=== PATIENT | female | born 1980 | race Caucasian/White ===

== ENCOUNTER 2017-07-14 15:13 | Emergency (ER) | payer OTHER ==
--- NOTE | 2017-07-14 15:51 | EDM.PDOC ---
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 Patient indicates she is anywhere from 5-7 weeks by serology but that she has had no established care appointment. Patient indicates this was an intentional that she had her IUD removed to get . Patient indicates she has had 5 pregnancies with 4 live births and she has never felt pressure or pain in her lower pelvis likely this before. Patient denies any vaginal bleeding or discharge at this time.] Review of systems: As per history of present illness and below otherwise all systems reviewed and negative. Past medical history: As per history of present illness and as reviewed below otherwise noncontributory. Surgical history: As per history of present illness and as reviewed below otherwise noncontributory. Social history: No reported history of drug or alcohol abuse. Family history: As per history of present illness and as reviewed below otherwise noncontributory. Physical exam: HEENT: Atraumatic, normocephalic, pupils reactive, negative for conjunctival pallor or scleral icterus, mucous membranes moist, throat clear, neck supple, nontender, trachea midline. Lungs: Clear to auscultation, breath sounds equal bilaterally, chest nontender. Heart: S1S2, regular, negative for clicks, rubs, or JVD. Abdomen: Soft, nondistended, nontender. Negative for masses or hepatosplenomegaly. Negative for costovertebral tenderness. Pelvis: Stable nontender. Genitourinary: Deferred. Rectal: Deferred. Extremities: Atraumatic, negative for cords or calf pain. Neurovascular unremarkable. Neuro: Awake, alert, oriented. Cranial nerves II through XII unremarkable. Cerebellum unremarkable. Motor and sensory unremarkable throughout. Exam nonfocal. 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 Lower Abdominal Pain Score (Numeric/FACES): 8 - Related Data Allergies Allergy/AdvReac Type Severity Reaction Status Date / Time No Known Allergies Allergy Verified 07/14/17 15:28 Home Meds: Home Meds buPROPion [Wellbutrin XL] 150 mg PO DAILY 05/24/16 [History] valACYclovir HCl [Valtrex] 500 mg PO DAILY 05/24/16 [History] Past Medical History Genitourinary History: Reports: Other (See Below) Other Genitourinary History: over active bladder, genital herpes Psychiatric History: Reports: Depression Oncologic (Cancer) History: Reports: Hodgkin's Lymphoma, Other (See Below) Other Oncologic History: treated with 8 months of chemo 2001 - Infectious Disease History Infectious Disease History: Reports: Herpes - Past Surgical History Musculoskeletal Surgical History: Reports: Other (See Below) Oncologic Surgical History: Reports: Other (See Below) Social & Family History - Family History Family Medical History: Noncontributory - Tobacco Use Smoking Status *Q: Never Smoker - Caffeine Use Caffeine Use: Reports: None - Recreational Drug Use Recreational Drug Use: No ED ROS GENERAL - Review of Systems Review Of Systems: See Below (History of present illness) ED EXAM, GENERAL - Physical Exam Exam: See Below (See history of present illness) Course - Vital Signs Last Recorded V/S: Last Vital Signs Temp 37.2 C 07/14/17 15:21 Pulse 100 07/14/17 15:21 Resp 20 07/14/17 15:21 BP 126/75 07/14/17 15:21 Pulse Ox 99 07/14/17 15:21 - Orders/Labs/Meds Orders: Active Orders 24 hr Category Date Time Status OB 1st Tri Sgl 1st Gest [US] Stat Exams 07/14/17 15:32 Taken Labs: Laboratory Tests 07/14/17 07/14/17 07/14/17 Range/Units 15:20 15:39 15:39 WBC 10.82 (4.0-11.0) K/uL RBC 4.05 L (4.30-5.90) M/uL Hgb 13.2 (12.0-16.0) g/dL Hct 37.7 (36.0-46.0) % MCV 93.1 (80.0-98.0) fL MCH 32.6 H (27.0-32.0) pg MCHC 35.0 (31.0-37.0) g/dL RDW Std Deviation 43.9 (28.0-62.0) fl RDW Coeff of Gato 13 (11.0-15.0) % Plt Count 268 (150-400) K/uL MPV 9.40 (7.40-12.00) fL Neut % (Auto) 63.1 (48.0-80.0) % Lymph % (Auto) 28.2 (16.0-40.0) % [place] % (Auto) 6.7 (0.0-15.0) % Eos % (Auto) 1.8 (0.0-7.0) % Baso % (Auto) 0.2 (0.0-1.5) % Neut # (Auto) 6.8 H (1.4-5.7) K/uL Lymph # (Auto) 3.1 H (0.6-2.4) K/uL [place] # (Auto) 0.7 (0.0-0.8) K/uL Eos # (Auto) 0.2 (0.0-0.7) K/uL Baso # (Auto) 0.0 (0.0-0.1) K/uL Nucleated RBC % 0.0 /100WBC Nucleated RBCs # 0 K/uL HCG, Quant 564.0 mIU/mL Urine Color YELLOW Urine Appearance SLT CLOUDY Urine pH 7.5 (5.0-8.0) Ur Specific Boomer 1.015 (1.001-1.035) Urine Protein NEGATIVE (NEGATIVE) mg/dL Urine Glucose (UA) NEGATIVE (NEGATIVE) mg/dL Urine Ketones NEGATIVE (NEGATIVE) mg/dL Urine Occult Blood NEGATIVE (NEGATIVE) Urine Nitrite NEGATIVE (NEGATIVE) Urine Bilirubin NEGATIVE (NEGATIVE) Urine Urobilinogen 0.2 (<2.0) EU/dL Ur Leukocyte Esterase NEGATIVE (NEGATIVE) Urine RBC 0-1 (0-2/HPF) Urine WBC 0-2 (0-5/HPF) Ur Epithelial Cells FEW (NONE-FEW) Amorphous Sediment LIGHT (NEGATIVE) Urine Bacteria FEW (NEGATIVE) Urine Mucus LIGHT (NONE-MOD) Blood Type 07/14/17 Range/Units 15:39 WBC (4.0-11.0) K/uL RBC (4.30-5.90) M/uL Hgb (12.0-16.0) g/dL Hct (36.0-46.0) % MCV (80.0-98.0) fL MCH (27.0-32.0) pg MCHC (31.0-37.0) g/dL RDW Std Deviation (28.0-62.0) fl RDW Coeff of Gato (11.0-15.0) % Plt Count (150-400) K/uL MPV (7.40-12.00) fL Neut % (Auto) (48.0-80.0) % Lymph % (Auto) (16.0-40.0) % [place] % (Auto) (0.0-15.0) % Eos % (Auto) (0.0-7.0) % Baso % (Auto) (0.0-1.5) % Neut # (Auto) (1.4-5.7) K/uL Lymph # (Auto) (0.6-2.4) K/uL [place] # (Auto) (0.0-0.8) K/uL Eos # (Auto) (0.0-0.7) K/uL Baso # (Auto) (0.0-0.1) K/uL Nucleated RBC % /100WBC Nucleated RBCs # K/uL HCG, Quant mIU/mL Urine Color Urine Appearance Urine pH (5.0-8.0) Ur Specific Boomer (1.001-1.035) Urine Protein (NEGATIVE) mg/dL Urine Glucose (UA) (NEGATIVE) mg/dL Urine Ketones (NEGATIVE) mg/dL Urine Occult Blood (NEGATIVE) Urine Nitrite (NEGATIVE) Urine Bilirubin (NEGATIVE) Urine Urobilinogen (<2.0) EU/dL Ur Leukocyte Esterase (NEGATIVE) Urine RBC (0-2/HPF) Urine WBC (0-5/HPF) Ur Epithelial Cells (NONE-FEW) Amorphous Sediment (NEGATIVE) Urine Bacteria (NEGATIVE) Urine Mucus (NONE-MOD) Blood Type A POSITIVE Departure - Departure Time of Disposition: 18:11 Disposition: Home, Self-Care 01 Condition: Good Clinical Impression: Threatened - Discharge Information Referrals: Sarai Man TRAY SERVER [Primary Care Provider] - Forms: ED Department Discharge Additional Instructions: The following information is given to patients seen in the emergency department who are being discharged to home. This information is to outline your options for follow-up care. We provide all patients seen in our emergency department with a follow-up referral. The need for follow-up, as well as the timing and circumstances, are variable depending upon the specifics of your emergency department visit. If you don't have a primary care physician on staff, we will provide you with a referral. We always advise you to contact your personal physician following an emergency department visit to inform them of the circumstance of the visit and for follow-up with them and/or the need for any referrals to a consulting specialist. The emergency department will also refer you to a specialist when appropriate. This referral assures that you have the opportunity for follow-up care with a specialist. All of these measure are taken in an effort to provide you with optimal care, which includes your follow-up. Under all circumstances we always encourage you to contact your private physician who remains a resource for coordinating your care. When calling for follow-up care, please make the office aware that this follow-up is from your recent emergency room visit. If for any reason you are refused follow-up, please contact the [facility] Emergency Department at and asked to speak to the emergency department charge nurse. Follow-up with OB in 48 hours for serial hCG Return to ED as needed as discussed - My Orders Last 24 Hours: My Active Orders 07/14/17 15:32 OB 1st Tri Sgl 1st Gest [US] Stat - Assessment/Plan Last 24 Hours: My Active Orders 07/14/17 15:32 OB 1st Tri Sgl 1st Gest [US] Stat
[2017-07-14 19:14] VITALS: BP 119/79
--- NOTE | 2017-07-15 14:05 | US ---
EXAM DATE: 07/14/17 PATIENT'S AGE: 36 Patient: TREY NDIAYE Facility: [place] Site . Site : [id number] Study: US OB Pelvis [id number]/14/2017 5:10:16 PM Ordering Physician: Doctor Field Final Report: INDICATION: with pelvic pain. HCG level 564. TECHNIQUE: Ultrasound OB pelvis. Real-time russell-scale imaging of the pelvis was performed. COMPARISON: None. FINDINGS: No definite intrauterine gestational sac. Moderate amount of fluid within the endometrial canal. Possible yolk sac within the endometrial fluid, measuring 5 millimeters. Hypoechoic focus in the left ovary with peripheral color Doppler flow, findings most suggestive of left ovarian corpus luteum cyst measuring 1.9 centimeters. Right ovary normal. No significant free pelvic fluid. IMPRESSION: 1. POSSIBLE FAILED 1ST TRIMESTER OR EARLY GESTATION WITHIN THE ENDOMETRIAL CANAL. NO DEFINITE GESTATIONAL SAC OR POLE IDENTIFIED. CONSIDER FOLLOWUP WITH REPEAT HCG LEVELS AND REPEAT PELVIC ULTRASOUND IN APPROXIMATELY 1 WEEK. 2. LIKELY LEFT OVARIAN CORPUS LUTEUM CYST. RIGHT OVARY NORMAL. 3. NO SIGNIFICANT FREE PELVIC FLUID. Report called to THAIS Araiza on 07/14/2017 at 6:10pm [facility]. Dictated by Carlos Alberto Ellsworth MD @ 07/14/2017 6:12:03 PM Dictated by: Carlos Alberto Ellsworth MD @ 07/14/2017 18:12:10 (Electronic Signature) Report Signed by Proxy. XOCHILT
== END 2017-07-14 18:26 | disposition home or self-care (01) ==
LOC: MW.ED 15:13
DX: O20.0 Threatened abortion (principal); Z79.899 Other long term (current) drug therapy; Z3A.01 Less than 8 weeks gestation of pregnancy
CPT/HCPCS: 36415; 76801; 76801-26; 81001; 84702; 85025; 86900; 86901; 99283; 99284-25

== ENCOUNTER 2017-07-26 08:53 | Day surgery (SDC) | payer OTHER ==
[~2017-07-26 08:53] MED LIST: Lactated Ringers 1,000 ML IV SCH; Sodium Chloride 0.9% 10 ML Syringe FLUSH PRN; Sodium Chloride 0.9% 2.5 ML Syringe FLUSH PRN
[2017-07-26 09:12] LABS: CHLORIDE,CL 105 mmol/L (98-110); SODIUM,NA 137 mmol/L (136-146)
--- NOTE | 2017-07-26 10:36 | PCM.PREANE ---
Preanesthetic Assessment - Procedure Proposed Procedure: Laparoscopy and D & E - Anesthesia/Transfusion/Family Hx Anesthesia History: Prior Anesthesia Without Reaction Family History of Anesthesia Reaction: No Transfusion History: Prior Transfusion Without Reaction Intubation History: Unknown - Review of Systems General: No Symptoms Pulmonary: No Symptoms Cardiovascular: No Symptoms Gastrointestinal: No Symptoms Neurological: No Symptoms Other: Reports: Depression (on wellbutrin) - Physical Assessment NPO Status Date: 07/25/17 NPO Status Time: 21:00 O2 Sat by Pulse Oximetry: 97 Respiratory Rate: 16 Vital Signs: Last Vital Signs Temp 99.0 F 07/26/17 09:40 Pulse 74 07/26/17 09:40 Resp 16 07/26/17 09:40 BP 104/55 L 07/26/17 09:40 Pulse Ox 97 07/26/17 09:40 Height: 5 ft 4 in Weight: 176 lb ASA Class: 2 Mental Status: Alert & Oriented x3 Airway Class: Mallampati = 2 Dentition: Reports: Normal Dentition Thyro-Mental Finger Breadths: 3 Mouth Opening Finger Breadths: 3 ROM/Head Extension: Full Lungs: Clear to Auscultation, Normal Respiratory Effort Cardiovascular: Regular Rate, Regular Rhythm, No Murmurs - Lab Values: Laboratory Last Values WBC 8.97 K/uL (4.0-11.0) 07/26/17 08:42 RBC 3.69 M/uL (4.30-5.90) L 07/26/17 08:42 Hgb 12.0 g/dL (12.0-16.0) 07/26/17 08:42 Hct 34.2 % (36.0-46.0) L 07/26/17 08:42 MCV 92.7 fL (80.0-98.0) 07/26/17 08:42 MCH 32.5 pg (27.0-32.0) H 07/26/17 08:42 MCHC 35.1 g/dL (31.0-37.0) 07/26/17 08:42 RDW Std Deviation 43.5 fl (28.0-62.0) 07/26/17 08:42 RDW Coeff of Gato 13 % (11.0-15.0) 07/26/17 08:42 Plt Count 224 K/uL (150-400) 07/26/17 08:42 MPV 8.80 fL (7.40-12.00) 07/26/17 08:42 Nucleated RBC % 0.0 /100WBC 07/26/17 08:42 Nucleated RBCs # 0 K/uL 07/26/17 08:42 Sodium 137 mmol/L (136-146) 07/26/17 08:42 Potassium 3.8 mmol/L (3.5-5.1) 07/26/17 08:42 Chloride 105 mmol/L (98-110) 07/26/17 08:42 Carbon Dioxide 27 mmol/L (21-31) 07/26/17 08:42 BUN 11 mg/dL (6.0-23.0) 07/26/17 08:42 Creatinine 0.7 mg/dL (0.6-1.5) 07/26/17 08:42 Est Cr Clr Drug Dosing 95.94 mL/min 07/26/17 08:42 Estimated GFR (MDRD) > 60.0 ml/min 07/26/17 08:42 Glucose 86 mg/dL (60-110) 07/26/17 08:42 Calcium 8.9 mg/dL (8.8-10.8) 07/26/17 08:42 Blood Type A POSITIVE 07/26/17 08:42 Antibody Screen NEGATIVE 07/26/17 08:42 - Allergies Allergies/Adverse Reactions: Allergies Allergy/AdvReac Type Severity Reaction Status Date / Time No Known Allergies Allergy Verified 07/25/17 15:47 - Blood Blood Available: Yes Product(s) Available: PRBC (T and S) - Anesthesia Plan Pre-Op Medication Ordered: None - Acknowledgements Anesthesia Type Planned: General Anesthesia (OETT) Pt an Appropriate Candidate for the Planned Anesthesia: Yes Alternatives and Risks of Anesthesia Discussed w Pt/Guardian: Yes Pt/Guardian Understands and Agrees with Anesthesia Plan: Yes PreAnesthesia Questionnaire Other HEENT History: wears glasses/contacts Genitourinary History: Reports: Other (See Below) Other Genitourinary History: over active bladder, genital herpes Psychiatric History: Reports: Depression Hematologic History: Reports: Blood Transfusion(s) Oncologic (Cancer) History: Reports: Lymphoma Other Oncologic History: treated with chemo Dermatologic History: Reports: Other (See Below) Other Dermatologic History: genital herpes - Infectious Disease History Infectious Disease History: Reports: Herpes - Past Surgical History HEENT Surgical History: Reports: Other (See Below) Other HEENT Surgeries/Procedures: neck biopsy Female Surgical History: Reports: None Musculoskeletal Surgical History: Reports: Carpal Tunnel Other Musculoskeletal Surgeries/Procedures:: bilateral Oncologic Surgical History: Reports: Other (See Below) Other Oncologic Surgeries/Procedures: had port placement and removal - SUBSTANCE USE Smoking Status *Q: Never Smoker Recreational Drug Use History: No - HOME MEDS Home Medications: Home Meds buPROPion [Wellbutrin XL] 150 mg PO DAILY 05/24/16 [History] valACYclovir HCl [Valtrex] 500 mg PO DAILY 05/24/16 [History] - CURRENT (IN HOUSE) MEDS Current Meds: Current Medications Lactated Ringer's (Ringers, Lactated) 1,000 mls @ 125 mls/hr IV ASDIRECTED JOSE RAUL Last Admin: 07/26/17 09:35 Dose: 125 mls/hr Sodium Chloride (Saline Flush) 10 ml FLUSH ASDIRECTED PRN PRN Reason: Keep Vein Open Sodium Chloride (Saline Flush) 2.5 ml FLUSH ASDIRECTED PRN PRN Reason: Keep Vein Open
[2017-07-26] MEDS ORDERED: Fluorescein 5 ML Vial ONE (10:54)
[2017-07-26] MEDS ORDERED: Octyl 2-Cyanoacrylate 1 Tube ONE (10:54)
[2017-07-26] MEDS ORDERED: fentaNYL 100 MCG/2 ML SDV ONE (11:08)
[2017-07-26] MEDS ORDERED: Rocuronium 10 MG/ML 10 ML Syringe ONE (11:08)
[2017-07-26] MEDS ORDERED: Ondansetron 4 MG/2 ML SDV ONE (11:08)
[2017-07-26] MEDS ORDERED: Succinylcholine/Normal Saline 200 MG/10 ML Syringe ONE (11:08)
[2017-07-26] MEDS ORDERED: Dexamethasone 4 MG/ML 5 ML MDV ONE (11:08)
[2017-07-26] MEDS ORDERED: Midazolam 1 MG/ML 2 ML SDV ONE (11:08)
[2017-07-26] MEDS ORDERED: Propofol 200 MG/20 ML SDV ONE (11:08)
[2017-07-26] MEDS ORDERED: diphenhydrAMINE 50 MG/ML SDV ONE (11:44)
[2017-07-26] MEDS ORDERED: HYDROmorphone 2 MG/ML Syringe ONE (11:45)
[2017-07-26] MEDS ORDERED: Neostigmine Methylsulfate 1 MG/ML 5 ML Syringe ONE (12:06)
[2017-07-26] MEDS ORDERED: Ketorolac 30 MG/ML SDV ONE (12:10)
[2017-07-26] MEDS ORDERED: Acetaminophen/oxyCODONE 325-5 MG Tab PO PRN ×2 (12:19)
[2017-07-26] MEDS ORDERED: Morphine 4 MG/ML Syringe IVPUSH PRN (12:19)
[2017-07-26] MEDS ORDERED: Ondansetron 4 MG/2 ML SDV IVPUSH PRN (12:19)
[2017-07-26] MEDS ORDERED: Promethazine 25 MG/ML SDV IM PRN (12:19)
[2017-07-26] MEDS ORDERED: Ketorolac 30 MG/ML SDV IVPUSH PRN (12:19)
[2017-07-26] MEDS ORDERED: Ketorolac 30 MG/ML SDV IVPUSH ONE (12:19)
[2017-07-26] MEDS ORDERED: Morphine 2 MG/ML Syringe IVPUSH PRN (12:19)
--- NOTE | 2017-07-26 12:23 | PCM.OPNOTE ---
- General Post-Op/Procedure Note Date of Surgery/Procedure: 07/26/17 Operative Procedure(s): D&E Dignostic Laparascopy Pre Op Diagnosis: Ectopic Post-Op Diagnosis: Same Anesthesia Technique: General ET Tube Primary Surgeon: Siva Wyman EBL in mLs: 35 Complications: None Condition: Good
--- NOTE | 2017-07-26 12:24 | PCM.DCSUM1 ---
Discharge Summary - Discharge Data Discharge Date: 07/26/17 Discharge Disposition: Home, Self-Care 01 Condition: Good - Patient Summary/Data Operative Procedure(s) Performed: D&E Dignostic Laparascopy - Patient Instructions Diet: Usual Diet as Tolerated Activity: As Tolerated Driving: Do Not Drive Showering/Bathing: January Shower Wound/Incision Care: Keep Operative Site/Wound Site Clean and Dry Notify Provider of: Fever, Increased Pain, Nausea and/or Vomiting - Discharge Plan Home Medications: Home Meds buPROPion [Wellbutrin XL] 150 mg PO DAILY 05/24/16 [History] valACYclovir HCl [Valtrex] 500 mg PO DAILY 05/24/16 [History] - General Info Date of Service: 07/26/17 Functional Status: Reports: Pain Controlled - Review of Systems General: Reports: No Symptoms HEENT: Reports: No Symptoms Pulmonary: Reports: No Symptoms Cardiovascular: Reports: No Symptoms Gastrointestinal: Reports: No Symptoms Genitourinary: Reports: No Symptoms Musculoskeletal: Reports: No Symptoms Skin: Reports: No Symptoms Neurological: Reports: No Symptoms Psychiatric: Reports: No Symptoms - Patient Data Vitals - Most Recent: Last Vital Signs Temp 37.2 C 07/26/17 09:40 Pulse 74 07/26/17 09:40 Resp 16 07/26/17 10:36 BP 104/55 L 07/26/17 09:40 Pulse Ox 97 07/26/17 10:36 Weight - Most Recent: 79.832 kg Lab Results - Last 24 hrs: Laboratory Results - last 24 hr 07/26/17 07/26/17 07/26/17 Range/Units 08:42 08:42 08:42 WBC 8.97 (4.0-11.0) K/uL RBC 3.69 L (4.30-5.90) M/uL Hgb 12.0 (12.0-16.0) g/dL Hct 34.2 L (36.0-46.0) % MCV 92.7 (80.0-98.0) fL MCH 32.5 H (27.0-32.0) pg MCHC 35.1 (31.0-37.0) g/dL RDW Std Deviation 43.5 (28.0-62.0) fl RDW Coeff of Gato 13 (11.0-15.0) % Plt Count 224 (150-400) K/uL MPV 8.80 (7.40-12.00) fL Nucleated RBC % 0.0 /100WBC Nucleated RBCs # 0 K/uL Sodium 137 (136-146) mmol/L Potassium 3.8 (3.5-5.1) mmol/L Chloride 105 (98-110) mmol/L Carbon Dioxide 27 (21-31) mmol/L BUN 11 (6.0-23.0) mg/dL Creatinine 0.7 (0.6-1.5) mg/dL Est Cr Clr Drug Dosing 95.94 mL/min Estimated GFR (MDRD) > 60.0 ml/min Glucose 86 (60-110) mg/dL Calcium 8.9 (8.8-10.8) mg/dL Blood Type A POSITIVE Antibody Screen NEGATIVE Med Orders - Current: Current Medications Lactated Ringer's (Ringers, Lactated) 1,000 mls @ 125 mls/hr IV ASDIRECTED JOSE RAUL Last Admin: 07/26/17 09:35 Dose: 125 mls/hr Ketorolac Tromethamine (Toradol) 30 mg IVPUSH ONETIME ONE Stop: 07/26/17 12:20 Ketorolac Tromethamine (Toradol) 30 mg IVPUSH Q6H PRN PRN Reason: Pain (severe 7-10) Stop: 07/31/17 12:19 Morphine Sulfate (Morphine) 2 mg IVPUSH Q2H PRN PRN Reason: Pain (severe 7-10) Morphine Sulfate (Morphine) 4 mg IVPUSH Q2H PRN PRN Reason: Pain (severe 7-10) Ondansetron HCl (Zofran) 4 mg IVPUSH Q6H PRN PRN Reason: Nausea/Vomiting Oxycodone/Acetaminophen (Percocet 325-5 Mg) 1 tab PO Q4H PRN PRN Reason: Pain (moderate 4-6) Oxycodone/Acetaminophen (Percocet 325-5 Mg) 2 tab PO Q4H PRN PRN Reason: Pain (moderate 4-6) Promethazine HCl (Phenergan) 25 mg IM Q6H PRN PRN Reason: Nausea/Vomiting Sodium Chloride (Saline Flush) 10 ml FLUSH ASDIRECTED PRN PRN Reason: Keep Vein Open Sodium Chloride (Saline Flush) 2.5 ml FLUSH ASDIRECTED PRN PRN Reason: Keep Vein Open Discontinued Medications Dexamethasone (Dexamethasone) Confirm Administered Dose 20 mg .ROUTE .ST-MED ONE Stop: 07/26/17 11:09 Diphenhydramine HCl (Benadryl) Confirm Administered Dose 50 mg .ROUTE .STK-MED ONE Stop: 07/26/17 11:45 Fentanyl (Sublimaze) Confirm Administered Dose 200 mcg .ROUTE .ST-MED ONE Stop: 07/26/17 11:09 Fluorescein Sodium (Ak-Fluor) Confirm Administered Dose 5 ml .ROUTE .ST-MED ONE Stop: 07/26/17 10:55 Glycopyrrolate () Confirm Administered Dose 1 mg .ROUTE .ST-MED ONE Stop: 07/26/17 12:07 Hydromorphone HCl (Dilaudid) Confirm Administered Dose 2 mg .ROUTE .ST-MED ONE Stop: 07/26/17 11:46 Ketorolac Tromethamine (Toradol) Confirm Administered Dose 30 mg .ROUTE .[email or web address] MED ONE Stop: 07/26/17 12:11 Midazolam HCl (Versed 1 Mg/Ml) Confirm Administered Dose 2 mg .ROUTE .[facility] [[email or web address]MED ONE Stop: 07/26/17 11:09 Neostigmine Methylsulfate (Neostigmine) Confirm Administered Dose 5 mg .ROUTE .ST-MED ONE Stop: 07/26/17 12:07 Octyl Cyanoacrylate (Dermabond Advance) Confirm Administered Dose 1 applic .ROUTE .[facility] [[email or web address]MED ONE Stop: 07/26/17 10:55 Ondansetron HCl (Zofran) Confirm Administered Dose 4 mg .ROUTE .ST-MED ONE Stop: 07/26/17 11:09 Propofol (Diprivan 20 Ml) Confirm Administered Dose 200 mg .ROUTE .ST-MED ONE Stop: 07/26/17 11:09 Rocuronium [place] (Zemuron) Confirm Administered Dose 100 mg .ROUTE .ST-MED ONE Stop: 07/26/17 11:09 Succinylcholine Chloride (Succinylcholine In Ns Pf) Confirm Administered Dose 200 mg .ROUTE .ST-MED ONE Stop: 07/26/17 11:09 - Exam General: Reports: Alert, Oriented HEENT: Reports: Pupils Equal, Pupils Reactive, EOMI, Mucous Membr. Moist/[place] Neck: Reports: Supple Lungs: Reports: Clear to Auscultation, Normal Respiratory Effort Cardiovascular: Reports: Regular Rate, Regular Rhythm GI/Abdominal Exam: Normal Bowel Sounds, Soft, Non-Tender, No Organomegaly, No Distention, No Abnormal Bruit, No Mass, Pelvis Stable (Female) Exam: Normal External Exam, Normal Speculum Exam, Normal Bimanual Exam Rectal (Female) Exam: Normal Exam, Normal Rectal Tone Back Exam: Reports: Normal Inspection, Full Range of Motion Extremities: Normal Inspection, Normal Range of Motion, Non-Tender, No Pedal Edema, Normal Capillary Refill Skin: Reports: Warm, Dry, Intact Wound/Incisions: Reports: Healing Well Neurological: Reports: No New Focal Deficit Psy/Mental Status: Reports: Alert, Normal Affect, Normal Mood *Q Meaningful Use (DIS) - VTE *Q VTE Criteria *Q: - Stroke *Q Stroke Criteria *Q: - AMI *Q AMI Criteria *Q:
--- NOTE | 2017-07-26 12:56 | PCM.POSTAN ---
POST ANESTHESIA ASSESSMENT - MENTAL STATUS Mental Status: Alert, Oriented - RESPIRATORY Respiratory Status: Respiratory Rate WNL, Airway Patent, O2 Saturation Stable - CARDIOVASCULAR CV Status: Pulse Rate WNL, Blood Pressure Stable - GASTROINTESTINAL GI Status: No Symptoms - PAIN Pain Score: 4 - POST OP HYDRATION Hydration Status: Adequate & Stable
--- NOTE | 2017-07-26 13:41 | PCM48HPAN ---
Post Anesthesia Note - EVALUATION WITHIN 48HRS OF ANESTHETIC Vital Signs in Normal Range: Yes Patient Participated in Evaluation: Yes Respiratory Function Stable: Yes Airway Patent: Yes Cardiovascular Function Stable: Yes Hydration Status Stable: Yes Pain Control Satisfactory: Yes Nausea and Vomiting Control Satisfactory: Yes Mental Status Recovered: Yes
[2017-07-26 15:30] VITALS: BP 116/71
--- NOTE | 2017-07-26 18:52 | OR ---
SURGEON: Siva Wyman MD DATE OF PROCEDURE: PREOPERATIVE DIAGNOSES: 1. Tubal . 2. Abnormal rise of beta-HCG radioimmunoassay. POSTOPERATIVE DIAGNOSES: 1. Tubal . 2. Abnormal rise of beta-HCG radioimmunoassay. OPERATION PERFORMED: Dilatation and evacuation and multiple-puncture diagnostic laparoscopy. TOUR CONDUCTOR: OR tech. ANESTHESIA: General endotracheal intubation, Sheba Gibbons and Dr. Sanches. ESTIMATED BLOOD LOSS: Less than 50 mL. COMPLICATIONS: None. FINDINGS: Some decidual tissue and possible products of conception through the D and E. In the diagnostic laparoscopy, both tubes are essentially normal. There is no evidence of tubal . INDICATIONS FOR SURGERY: This patient has an abnormal rise of beta-HCG PAOLA. In spite of 2 doses of methotrexate, the beta-hCG PAOLA continued to rise abnormally, so the possibility of tubal is entertained versus a chemical , and a decision was made to do D and E and diagnostic laparoscopy. PROCEDURE IN DETAIL: The patient was brought to the OR, properly identified, and after adequate level of general anesthesia, the patient was placed in the lithotomy position, prepped and draped in a sterile fashion as usual. A weighted speculum was placed in the vagina, and a single-tooth tenaculum applied to the cervix. The cervix was sequentially dilated to accommodate a #7 cannula. The cannula was placed in the endometrial cavity, and the cavity was uniformly evacuated. There was a small blood clot and a small amount of tissue. It was not sufficient to make the diagnosis that the patient did have incomplete . A Hulka manipulator was placed in the uterus for manipulation, and then the operation shifted abdominally. Stab wound done beneath the umbilicus. The Veress needle was placed in the peritoneal cavity, and the cavity was insufflated with 6 L of carbon dioxide. Utilizing the Visiport technique, the peritoneal cavity was entered from the umbilical incision with 5 mm trocar and then placing the patient in steep Trendelenburg, another 5 mm trocar was placed in the left iliac fossa. On inspection of the pelvic organ, there was no hematoperitoneum. The uterus looked completely normal. Both tubes looked beautifully normal. There was no evidence scarring or adhesion or endometriosis. There was no evidence of tubal in both tubes. After doing peritoneal lavage and making sure everything was okay, the procedure was ended, the air was evacuated from the peritoneal cavity, and the multiple laparoscopic incisions were closed in layers. Instrument and sponge counts were obtained from the abdomen and the vagina. The patient tolerated the procedure well and went to the recovery room in stable and general condition. RYAN BOSTON /[id number]
== END 2017-07-26 14:40 | disposition home or self-care (01) ==
LOC: MW.SDS 08:53
PROVIDERS: ATTEND Obstetrics & Gynecology
DX: O03.4 Incomplete spontaneous abortion without complication (principal); F41.9 Anxiety disorder, unspecified; F32.9 Major depressive disorder, single episode, unspecified; A60.00 Herpesviral infection of urogenital system, unspecified; J01.90 Acute sinusitis, unspecified; J40 Bronchitis, not specified as acute or chronic; J02.9 Acute pharyngitis, unspecified; N32.81 Overactive bladder; Z80.3 Family history of malignant neoplasm of breast; Z98.890 Other specified postprocedural states; Z79.51 Long term (current) use of inhaled steroids; Z79.899 Other long term (current) drug therapy; Z91.030 Bee allergy status; Z85.71 Personal history of Hodgkin lymphoma
CPT/HCPCS: 36415; 49320; 59841; 80048; 85027; 86850; 86900; 86901; A9270; J1100; J1170; J1200; J1885; J2250; J2405; J3010; J7120; 00840; 88305; J2704

== ENCOUNTER 2017-10-17 10:24 | Day surgery (SDC) | payer OTHER ==
[2017-10-17] MEDS ORDERED: Lactated Ringers 1,000 ML IV SCH (11:00)
[2017-10-17] MEDS ORDERED: Ondansetron 4 MG/2 ML SDV ONE ×2 (11:16→11:17)
[2017-10-17] MEDS ORDERED: Atropine 1 MG/ML SDV ONE ×2 (11:16→11:17)
[2017-10-17] MEDS ORDERED: Dexamethasone 4 MG/ML 5 ML MDV ONE ×2 (11:16→11:17)
[2017-10-17] MEDS ORDERED: Lidocaine 2% 5 ML SDV ONE ×2 (11:16→11:17)
[2017-10-17] MEDS ORDERED: Ketorolac 30 MG/ML SDV ONE ×2 (11:16→11:17)
[2017-10-17] MEDS ORDERED: Midazolam 1 MG/ML 2 ML SDV ONE (11:17)
[2017-10-17] MEDS ORDERED: Propofol 200 MG/20 ML SDV ONE (11:17)
[2017-10-17] MEDS ORDERED: fentaNYL 100 MCG/2 ML SDV ONE (11:17)
--- NOTE | 2017-10-17 11:32 | PCM.PREANE ---
Preanesthetic Assessment - Anesthesia/Transfusion/Family Hx Anesthesia History: Prior Anesthesia Without Reaction Family History of Anesthesia Reaction: No Transfusion History: Prior Transfusion Without Reaction Intubation History: Unknown - Review of Systems General: No Symptoms Pulmonary: No Symptoms Cardiovascular: No Symptoms Gastrointestinal: No Symptoms Neurological: No Symptoms Other: Reports: None - Physical Assessment NPO Status Date: 10/16/17 NPO Status Time: 21:00 O2 Sat by Pulse Oximetry: 98 Respiratory Rate: 16 Vital Signs: Last Vital Signs Temp 37.1 C 10/17/17 10:30 Pulse 82 10/17/17 10:30 Resp 16 10/17/17 10:30 BP 112/65 10/17/17 10:30 Pulse Ox 98 10/17/17 10:30 Height: 1.63 m Weight: 79.379 kg ASA Class: 2 Mental Status: Alert & Oriented x3 Airway Class: Mallampati = 1 Dentition: Reports: Normal Dentition ROM/Head Extension: Full Lungs: Clear to Auscultation, Normal Respiratory Effort Cardiovascular: Regular Rate, Regular Rhythm - Allergies Allergies/Adverse Reactions: Allergies Allergy/AdvReac Type Severity Reaction Status Date / Time No Known Allergies Allergy Verified 10/14/17 16:51 - Anesthesia Plan Pre-Op Medication Ordered: None - Acknowledgements Anesthesia Type Planned: General Anesthesia Pt an Appropriate Candidate for the Planned Anesthesia: Yes Alternatives and Risks of Anesthesia Discussed w Pt/Guardian: Yes Pt/Guardian Understands and Agrees with Anesthesia Plan: Yes PreAnesthesia Questionnaire Other HEENT History: wears glasses, contacts Genitourinary History: Reports: Other (See Below) Other Genitourinary History: hx of vaginal herpes 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 , , 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 Psychiatric History: Reports: Depression Hematologic History: Reports: Blood Transfusion(s) Immunologic History: Reports: Other (See Below) Other Immunologic History: hx of chemotherapy Oncologic (Cancer) History: Reports: Lymphoma Other Oncologic History: hx of Hodgkins Lymphoma, has been in remission for 14 years Dermatologic History: Reports: Other (See Below) Other Dermatologic History: genital herpes - Infectious Disease History Infectious Disease History: Reports: Herpes - Past Surgical History Cardiovascular Surgical History: Reports: Other (See Below) Other Cardiovascular Surgeries/Procedures: plasement and removal of port-a-cath Female Surgical History: Reports: Other (See Below) Other Female Surgeries/Procedures: laparoscopy for ectopic Musculoskeletal Surgical History: Reports: Other (See Below) Other Musculoskeletal Surgeries/Procedures:: bilateral carpal tunnel release Oncologic Surgical History: Reports: Other (See Below) Other Oncologic Surgeries/Procedures: hx of lymph node bx - SUBSTANCE USE Smoking Status *Q: Never Smoker Recreational Drug Use History: No - HOME MEDS Home Medications: Home Meds buPROPion [Wellbutrin XL] 150 mg PO DAILY 05/24/16 [History] valACYclovir HCl [Valtrex] 1,000 mg PO DAILY 05/24/16 [History] Diclofenac Sodium [Voltaren] 1 dose TOP BID PRN 10/14/17 [History] - CURRENT (IN HOUSE) MEDS Current Meds: Current Medications Lactated Ringer's (Ringers, Lactated) 1,000 mls @ 125 mls/hr IV ASDIRECTED [facility] Last Admin: 10/17/17 10:54 Dose: 125 mls/hr Discontinued Medications Atropine Sulfate (Atropine 1 Mg/Ml) Confirm Administered Dose 1 mg .ROUTE .STK- MED ONE Stop: 10/17/17 11:17 Atropine Sulfate (Atropine 1 Mg/Ml) Confirm Administered Dose 1 mg .ROUTE .STK- MED ONE Stop: 10/17/17 11:18 Dexamethasone (Dexamethasone) Confirm Administered Dose 20 mg .ROUTE .STK-MED ONE Stop: 10/17/17 11:17 Dexamethasone (Dexamethasone) Confirm Administered Dose 20 mg .ROUTE .STK-MED ONE Stop: 10/17/17 11:18 Fentanyl (Sublimaze) Confirm Administered Dose 100 mcg .ROUTE .STK-MED ONE Stop: 10/17/17 11:18 Ketorolac Tromethamine (Toradol) Confirm Administered Dose 30 mg .ROUTE .STK- MED ONE Stop: 10/17/17 11:17 Ketorolac Tromethamine (Toradol) Confirm Administered Dose 30 mg .ROUTE .STK- MED ONE Stop: 10/17/17 11:18 Lidocaine (Xylocaine-Mpf 2%) Confirm Administered Dose 5 ml .ROUTE .STK-MED ONE Stop: 10/17/17 11:17 Lidocaine (Xylocaine-Mpf 2%) Confirm Administered Dose 5 ml .ROUTE .STK-MED ONE Stop: 10/17/17 11:18 Midazolam HCl (Versed 1 Mg/Ml) Confirm Administered Dose 2 mg .ROUTE .STK-MED ONE Stop: 10/17/17 11:18 Ondansetron HCl (Zofran) Confirm Administered Dose 4 mg .ROUTE .STK-MED ONE Stop: 10/17/17 11:17 Ondansetron HCl (Zofran) Confirm Administered Dose 4 mg .ROUTE .STK-MED ONE Stop: 10/17/17 11:18 Propofol (Diprivan 20 Ml) Confirm Administered Dose 400 mg .ROUTE .STK-MED ONE Stop: 10/17/17 11:18
[2017-10-17] MEDS ORDERED: Carboprost Tromethamine 250 MCG/1 ML Amp ONE (11:33)
[2017-10-17] MEDS ORDERED: Methylergonovine 0.2 MG/1 ML Amp ONE (11:33)
[2017-10-17] MEDS ORDERED: Morphine 4 MG/ML Syringe IVPUSH PRN (12:20)
[2017-10-17] MEDS ORDERED: Promethazine 25 MG/ML SDV IM PRN (12:20)
[2017-10-17] MEDS ORDERED: Ketorolac 30 MG/ML SDV IVPUSH PRN (12:20)
[2017-10-17] MEDS ORDERED: Acetaminophen/oxyCODONE 325-5 MG Tab PO PRN ×2 (12:20)
[2017-10-17] MEDS ORDERED: Ketorolac 30 MG/ML SDV IVPUSH ONE (12:20)
[2017-10-17] MEDS ORDERED: Ondansetron 4 MG/2 ML SDV IVPUSH PRN (12:20)
[2017-10-17] MEDS ORDERED: Morphine 2 MG/ML Syringe IVPUSH PRN (12:20)
--- NOTE | 2017-10-17 12:25 | PCM.DCSUM1 ---
Discharge Summary - Discharge Data Discharge Date: 10/17/17 Discharge Disposition: Home, Self-Care 01 Condition: Good - Patient Instructions Diet: Usual Diet as Tolerated Activity: As Tolerated Showering/Bathing: May Shower Notify Provider of: Fever, Increased Pain, Nausea and/or Vomiting - Discharge Plan Home Medications: Home Meds buPROPion [Wellbutrin XL] 150 mg PO DAILY 05/24/16 [History] valACYclovir HCl [Valtrex] 1,000 mg PO DAILY 05/24/16 [History] Diclofenac Sodium [Voltaren] 1 dose TOP BID PRN 10/14/17 [History] - General Info Date of Service: 10/17/17 Functional Status: Reports: Pain Controlled - Review of Systems General: Reports: No Symptoms HEENT: Reports: No Symptoms Pulmonary: Reports: No Symptoms Cardiovascular: Reports: No Symptoms Gastrointestinal: Reports: No Symptoms Genitourinary: Reports: No Symptoms Musculoskeletal: Reports: No Symptoms Skin: Reports: No Symptoms Neurological: Reports: No Symptoms Psychiatric: Reports: No Symptoms - Patient Data Vitals - Most Recent: Last Vital Signs Temp 37.1 C 10/17/17 10:30 Pulse 82 10/17/17 10:30 Resp 16 10/17/17 11:32 BP 112/65 10/17/17 10:30 Pulse Ox 98 10/17/17 11:32 Weight - Most Recent: 79.379 kg Med Orders - Current: Current Medications Lactated Ringer's (Ringers, Lactated) 1,000 mls @ 125 mls/hr IV ASDIRECTED JOSE RAUL Last Admin: 10/17/17 10:54 Dose: 125 mls/hr Ketorolac Tromethamine (Toradol) 30 mg IVPUSH ONETIME ONE Stop: 10/17/17 12:21 Ketorolac Tromethamine (Toradol) 30 mg IVPUSH Q6H PRN PRN Reason: Pain (severe 7-10) Stop: 10/22/17 12:21 Morphine Sulfate (Morphine) 2 mg IVPUSH Q2H PRN PRN Reason: Pain (severe 7-10) Morphine Sulfate (Morphine) 4 mg IVPUSH Q2H PRN PRN Reason: Pain (severe 7-10) Ondansetron HCl (Zofran) 4 mg IVPUSH Q6H PRN PRN Reason: Nausea/Vomiting Oxycodone/Acetaminophen (Percocet 325-5 Mg) 1 tab PO Q4H PRN PRN Reason: Pain (moderate 4-6) Oxycodone/Acetaminophen (Percocet 325-5 Mg) 2 tab PO Q4H PRN PRN Reason: Pain (moderate 4-6) Promethazine HCl (Phenergan) 25 mg IM Q6H PRN PRN Reason: Nausea/Vomiting Discontinued Medications Atropine Sulfate (Atropine 1 Mg/Ml) Confirm Administered Dose 1 mg .ROUTE .STK- MED ONE Stop: 10/17/17 11:17 Atropine Sulfate (Atropine 1 Mg/Ml) Confirm Administered Dose 1 mg .ROUTE .STK- MED ONE Stop: 10/17/17 11:18 Carboprost Tromethamine (Hemabate Ds) Confirm Administered Dose 250 mcg .ROUTE .STK-MED ONE Stop: 10/17/17 11:34 Dexamethasone (Dexamethasone) Confirm Administered Dose 20 mg .ROUTE .STK-MED ONE Stop: 10/17/17 11:17 Dexamethasone (Dexamethasone) Confirm Administered Dose 20 mg .ROUTE .STK-MED ONE Stop: 10/17/17 11:18 Fentanyl (Sublimaze) Confirm Administered Dose 100 mcg .ROUTE .STK-MED ONE Stop: 10/17/17 11:18 Ketorolac Tromethamine (Toradol) Confirm Administered Dose 30 mg .ROUTE .STK- MED ONE Stop: 10/17/17 11:17 Ketorolac Tromethamine (Toradol) Confirm Administered Dose 30 mg .ROUTE .STK- MED ONE Stop: 10/17/17 11:18 Lidocaine (Xylocaine-Mpf 2%) Confirm Administered Dose 5 ml .ROUTE .STK-MED ONE Stop: 10/17/17 11:17 Lidocaine (Xylocaine-Mpf 2%) Confirm Administered Dose 5 ml .ROUTE .STK-MED ONE Stop: 10/17/17 11:18 Methylergonovine Maleate (Methergine) Confirm Administered Dose 0.2 mg .ROUTE .STK-MED ONE Stop: 10/17/17 11:34 Midazolam HCl (Versed 1 Mg/Ml) Confirm Administered Dose 2 mg .ROUTE .STK-MED ONE Stop: 10/17/17 11:18 Ondansetron HCl (Zofran) Confirm Administered Dose 4 mg .ROUTE .STK-MED ONE Stop: 10/17/17 11:17 Ondansetron HCl (Zofran) Confirm Administered Dose 4 mg .ROUTE .STK-MED ONE Stop: 10/17/17 11:18 Propofol (Diprivan 20 Ml) Confirm Administered Dose 400 mg .ROUTE .STK-MED ONE Stop: 10/17/17 11:18 - Exam General: Reports: Alert, Oriented HEENT: Reports: Pupils Equal, Pupils Reactive, EOMI, Mucous Membr. Moist/[place] Neck: Reports: Supple Lungs: Reports: Clear to Auscultation, Normal Respiratory Effort Cardiovascular: Reports: Regular Rate, Regular Rhythm GI/Abdominal Exam: Normal Bowel Sounds, Soft, Non-Tender, No Organomegaly, No Distention, No Abnormal Bruit, No Mass, Pelvis Stable (Female) Exam: Normal External Exam, Normal Speculum Exam, Normal Bimanual Exam Rectal (Female) Exam: Normal Exam, Normal Rectal Tone Back Exam: Reports: Normal Inspection, Full Range of Motion Extremities: Normal Inspection, Normal Range of Motion, Non-Tender, No Pedal Edema, Normal Capillary Refill Skin: Reports: Warm, Dry, Intact Wound/Incisions: Reports: Healing Well Neurological: Reports: No New Focal Deficit Psy/Mental Status: Reports: Alert, Normal Affect, Normal Mood *Q Meaningful Use (DIS) - VTE *Q VTE Criteria *Q: - Stroke *Q Stroke Criteria *Q: - AMI *Q AMI Criteria *Q:
--- NOTE | 2017-10-17 12:26 | PCM.OPNOTE ---
- General Post-Op/Procedure Note Date of Surgery/Procedure: 10/17/17 Operative Procedure(s): D&E Pre Op Diagnosis: Blighted ovum Post-Op Diagnosis: Same Anesthesia Technique: General LMA Primary Surgeon: Siva Wyman EBL in mLs: 50 Complications: None Condition: Good
--- NOTE | 2017-10-17 13:17 | PCM.POSTAN ---
POST ANESTHESIA ASSESSMENT - MENTAL STATUS Mental Status: Alert, Oriented - RESPIRATORY Respiratory Status: Respiratory Rate WNL, Airway Patent, O2 Saturation Stable - CARDIOVASCULAR CV Status: Pulse Rate WNL, Blood Pressure Stable - GASTROINTESTINAL GI Status: No Symptoms - POST OP HYDRATION Hydration Status: Adequate & Stable
[2017-10-17 14:18] VITALS: BP 99/52
--- NOTE | 2017-10-17 17:51 | OR ---
SURGEON: Siva Wyman MD DATE OF PROCEDURE: PREOPERATIVE DIAGNOSIS: Blighted ovum. POSTOPERATIVE DIAGNOSIS: Blighted ovum. OPERATION PERFORMED: Dilatation and evacuation. PLASTICS FABRICATOR AND ASSEMBLER: None. ANESTHESIA: ISMAEL Funez. ESTIMATED BLOOD LOSS: 60 mL. COMPLICATIONS: None. FINDING: Products of conception. INDICATIONS FOR SURGERY: This patient is 36. She had a positive test and she was about to be 9- 10 weeks. However, repeated ultrasound shows pole without any cardiac activity. Diagnosis of blighted ovum is entertained. The patient is counseled and admitted for dilatation and evacuation. PROCEDURE IN DETAIL: The patient was brought to the OR, properly identified, and after adequate level of anesthesia, time-out was taken, the patient was placed in lithotomy position, prepped and draped in sterile fashion as usual and then weighted speculum was placed in the vagina. The cervix was grabbed with a single-tooth tenaculum and the cervical canal sequentially dilated to accommodate #7 cannula. The cannula was placed in the endometrial cavity and then the endometrial cavity was evacuated completely and uniformly from all products of conception. Once this was done, the suction stopped, and a small curette was taken to curetting the endometrial cavity to confirm that the endometrial cavity is empty. Once that confirmed, then the procedure ended. The instrument and sponge count was correct. The patient tolerated the procedure well and went to recovery room in stable general condition. RYAN / LUDY /[id number]
== END 2017-10-17 13:40 | disposition home or self-care (01) ==
LOC: MW.SDS 10:24
PROVIDERS: ATTEND Obstetrics & Gynecology
DX: O02.0 Blighted ovum and nonhydatidiform mole (principal); J01.90 Acute sinusitis, unspecified; F41.9 Anxiety disorder, unspecified; F32.9 Major depressive disorder, single episode, unspecified; Z79.899 Other long term (current) drug therapy; Z98.890 Other specified postprocedural states; Z91.030 Bee allergy status
CPT/HCPCS: 59820; 88305; A9270; J0461; J1100; J1885; J2250; J2405; J3010; J7120; 01965; J2704

== ENCOUNTER 2018-05-01 03:02 | Emergency (ER) | payer OTHER ==
--- NOTE | 2018-05-01 03:11 | EDM.PDOC ---
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 Patient states that this morning approximately 2 AM she woke up to go to the bathroom and found that she was having heavy vaginal bleeding. It was more of a "gushing". Patient states that on 04/18 she was found to be 8-10 weeks with a nonviable fetus. At that time there was no heartbeat. For the next week afterwards she had normal "period-like bleeding". . Approximately 2 days ago she had heavy bleeding and was going through one pad every 2 hours. In addition she had one episode of heavy "gushing". States that the bleeding seemed to slow down until this evening at 2 AM when she had another episode of profuse bleeding. Patient's denies any lightheadedness but did have a migraine headache yesterday. Patient did have a miscarriage before that required a D&C. Last ultrasound was on 04/19/[address] Wyman as her SUPERVISOR SEAMING. As per above patient has a history of 2 miscarriages. Review of systems: As per history of present illness and below otherwise all systems reviewed and negative. Past medical history: As per history of present illness and as reviewed below otherwise noncontributory. Surgical history: As per history of present illness and as reviewed below otherwise noncontributory. Social history: No reported history of drug or alcohol abuse. Family history: As per history of present illness and as reviewed below otherwise noncontributory. Physical exam: HEENT: Atraumatic, normocephalic, pupils reactive, negative for conjunctival pallor or scleral icterus, mucous membranes moist, throat clear, neck supple, nontender, trachea midline. Lungs: Clear to auscultation, breath sounds equal bilaterally, chest nontender. Heart: S1S2, regular, negative for clicks, rubs, or JVD. Abdomen: Soft, nondistended, nontender. Negative for masses or hepatosplenomegaly. Negative for costovertebral tenderness. Pelvis: Stable nontender. Genitourinary: Deferred. Rectal: Deferred. Extremities: Atraumatic, negative for cords or calf pain. Neurovascular unremarkable. Neuro: Awake, alert, oriented. Cranial nerves II through XII unremarkable. Cerebellum unremarkable. Motor and sensory unremarkable throughout. Exam nonfocal. Diagnostics: CBC, BMP, Rh, pelvic ultrasound Therapeutics: [] Impression: demise Abnormal uterine bleeding Plan: Ultrasound revealed an intrauterine gestation at 7 weeks and 2 days by crown- rump length. No cardiac activity was demonstrated compatible with demise. I did call Dr. Wyman, patient's SUPERVISOR SEAMING and notified him of this patient. He is going to see her in the office today. He instructed us to have her nothing by mouth and his nurse will fit her into the schedule. Definitive disposition and diagnosis as appropriate pending reevaluation and review of above. 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 , , 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 Psychiatric History: Reports: Depression Hematologic History: Reports: Blood Transfusion(s) Immunologic History: Reports: Other (See Below) Other Immunologic History: hx of chemotherapy Oncologic (Cancer) History: Reports: Lymphoma Other Oncologic History: hx of Hodgkins Lymphoma, has been in remission for 14 years Dermatologic History: Reports: Other (See Below) Other Dermatologic History: genital herpes - Infectious Disease History Infectious Disease History: Reports: Herpes - Past Surgical History Cardiovascular Surgical History: Reports: Other (See Below) Other Cardiovascular Surgeries/Procedures: plasement and removal of port-a-cath Female Surgical History: Reports: Other (See Below) Other Female Surgeries/Procedures: laparoscopy for ectopic Musculoskeletal Surgical History: Reports: Other (See Below) Other Musculoskeletal Surgeries/Procedures:: bilateral carpal tunnel release Oncologic Surgical History: Reports: Other (See Below) Other Oncologic Surgeries/Procedures: hx of lymph node bx Social & Family History - Family History Family Medical History: Noncontributory - Caffeine Use Caffeine Use: Reports: None ED ROS GENERAL - Review of Systems Review Of Systems: ROS reveals no pertinent complaints other than HPI. ED EXAM, GENERAL - Physical Exam Exam: See Below Course - Vital Signs Last Recorded V/S: Last Vital Signs Temp 97.5 F 05/01/18 03:21 Pulse 86 05/01/18 03:21 Resp 16 05/01/18 03:21 BP 126/73 05/01/18 03:21 Pulse Ox 98 05/01/18 03:21 - Orders/Labs/Meds Orders: Active Orders 24 hr Category Date Time Status OB Transvaginal [US] Stat Exams 05/01/18 03:32 Taken Ondansetron [Zofran ODT] Med 05/01/18 05:19 Once 4 mg PO ONETIME ONE Labs: Laboratory Tests 05/01/18 05/01/18 05/01/18 Range/Units 03:36 03:36 03:36 WBC 9.34 (4.0-11.0) K/uL RBC 3.87 L (4.30-5.90) M/uL Hgb 12.2 (12.0-16.0) g/dL Hct 35.3 L (36.0-46.0) % MCV 91.2 (80.0-98.0) fL MCH 31.5 (27.0-32.0) pg MCHC 34.6 (31.0-37.0) g/dL RDW Std Deviation 43.7 (28.0-62.0) fl RDW Coeff of Gato 13 (11.0-15.0) % Plt Count 227 (150-400) K/uL MPV 8.80 (7.40-12.00) fL Neut % (Auto) 58.7 (48.0-80.0) % Lymph % (Auto) 32.8 (16.0-40.0) % [place] % (Auto) 4.9 (0.0-15.0) % Eos % (Auto) 3.3 (0.0-7.0) % Baso % (Auto) 0.3 (0.0-1.5) % Neut # (Auto) 5.5 (1.4-5.7) K/uL Lymph # (Auto) 3.1 H (0.6-2.4) K/uL [place] # (Auto) 0.5 (0.0-0.8) K/uL Eos # (Auto) 0.3 (0.0-0.7) K/uL Baso # (Auto) 0.0 (0.0-0.1) K/uL Nucleated RBC % 0.0 /100WBC Nucleated RBCs # 0 K/uL Sodium 139 (136-145) mmol/L Potassium 4.0 (3.5-5.1) mmol/L Chloride 103 (98-107) mmol/L Carbon Dioxide 26.9 (21.0-32.0) mmol/L BUN 13 (7.0-18.0) mg/dL Creatinine 0.7 (0.6-1.0) mg/dL Est Cr Clr Drug Dosing 95.02 mL/min Estimated GFR (MDRD) > 60.0 ml/min Glucose 142 H (74-106) mg/dL Calcium 8.7 (8.5-10.1) mg/dL HCG, Quant 1093.0 mIU/mL Blood Type 05/01/18 Range/Units 03:36 WBC (4.0-11.0) K/uL RBC (4.30-5.90) M/uL Hgb (12.0-16.0) g/dL Hct (36.0-46.0) % MCV (80.0-98.0) fL MCH (27.0-32.0) pg MCHC (31.0-37.0) g/dL RDW Std Deviation (28.0-62.0) fl RDW Coeff of Gato (11.0-15.0) % Plt Count (150-400) K/uL MPV (7.40-12.00) fL Neut % (Auto) (48.0-80.0) % Lymph % (Auto) (16.0-40.0) % [place] % (Auto) (0.0-15.0) % Eos % (Auto) (0.0-7.0) % Baso % (Auto) (0.0-1.5) % Neut # (Auto) (1.4-5.7) K/uL Lymph # (Auto) (0.6-2.4) K/uL [place] # (Auto) (0.0-0.8) K/uL Eos # (Auto) (0.0-0.7) K/uL Baso # (Auto) (0.0-0.1) K/uL Nucleated RBC % /100WBC Nucleated RBCs # K/uL Sodium (136-145) mmol/L Potassium (3.5-5.1) mmol/L Chloride (98-107) mmol/L Carbon Dioxide (21.0-32.0) mmol/L BUN (7.0-18.0) mg/dL Creatinine (0.6-1.0) mg/dL Est Cr Clr Drug Dosing mL/min Estimated GFR (MDRD) ml/min Glucose (74-106) mg/dL Calcium (8.5-10.1) mg/dL HCG, Quant mIU/mL Blood Type A POSITIVE Meds: Medications Discontinued Medications Generic Name Dose Route Start Last Admin Trade Name Freq PRN Reason Stop Dose Admin Ondansetron HCl 4 mg 05/01/18 05:19 Zofran Odt PO 05/01/18 05:20 ONETIME ONE Departure - Departure Time of Disposition: 05:21 Disposition: Home, Self-Care 01 Condition: Good Clinical Impression: demise, Vaginal bleeding - Discharge Information Referrals: Sarai Man BACK FILLER OPERATOR [Primary Care Provider] - Forms: ED Department Discharge Additional Instructions: My general discharge The following information is given to patients seen in the emergency department who are being discharged to home. This information is to outline your options for follow-up care. We provide all patients seen in our emergency department with a follow-up referral. The need for follow-up, as well as the timing and circumstances, are variable depending upon the specifics of your emergency department visit. If you don't have a primary care physician on staff, we will provide you with a referral. We always advise you to contact your personal physician following an emergency department visit to inform them of the circumstance of the visit and for follow-up with them and/or the need for any referrals to a consulting specialist. The emergency department will also refer you to a specialist when appropriate. This referral assures that you have the opportunity for follow-up care with a specialist. All of these measure are taken in an effort to provide you with optimal care, which includes your follow-up. Under all circumstances we always encourage you to contact your private physician who remains a resource for coordinating your care. When calling for follow-up care, please make the office aware that this follow-up is from your recent emergency room visit. If for any reason you are refused follow-up, please contact the [facility] Emergency Department at and asked to speak to the emergency department charge nurse. [facility] [address] [place] [address] As we discussed follow-up with Dr. Wyman's office this morning. Return to emergency department if any new or worsening symptoms. - My Orders Last 24 Hours: My Active Orders 05/01/18 03:32 OB Transvaginal [US] Stat 05/01/18 05:19 Ondansetron [Zofran ODT] 4 mg PO ONETIME ONE - Assessment/Plan Last 24 Hours: My Active Orders 05/01/18 03:32 OB Transvaginal [US] Stat 05/01/18 05:19 Ondansetron [Zofran ODT] 4 mg PO ONETIME ONE
[2018-05-01 03:58] LABS: CHLORIDE,CL 103 mmol/L (98-107); SODIUM,NA 139 mmol/L (136-145)
[2018-05-01] MEDS ORDERED: Ondansetron 4 MG Tab.DIS PO ONE (05:19)
[2018-05-01 05:57] VITALS: BP 119/73
--- NOTE | 2018-05-01 14:30 | US ---
EXAM DATE: 05/01/18 PATIENT'S AGE: 37 Patient: TREY NDIAYE Facility: [place], [place] Site . Site : [id number] Study: US OB Pelvis [id number]/[id number] 4:48:43 AM Ordering Physician: Nick Mandel Final Report: INDICATION: Vaginal bleeding TECHNIQUE: Ultrasound OB pelvis transabdominal and transvaginal. Real-time russell-scale imaging of the pelvis was performed. COMPARISON: None available FINDINGS: There is an intrauterine sac containing a pole with a crown-rump length of 1.1 cm, corresponding to 7 weeks and 2 days. No cardiac activity is demonstrated. A yolk sac is not clearly seen. The right ovary measures 2.5 x 1.6 x 2.9 centimeters and the left ovary measures 2.1 x 1.5 x 2.8 centimeters, containing a 1.6 x 1 cm hypoechoic structure which could represent a corpus luteum. No significant free fluid is seen. IMPRESSION: An intrauterine gestation at 7 weeks and 2 days by crown-rump length. No cardiac activity is demonstrated, compatible with demise. The findings were discussed with Dr. Romero, by phone, on 05/01/2018 at 5:10 a.m.. Dictated by Christopher Diaz MD @ 05/01/2018 5:11:09 AM Dictated by: Christopher Diaz MD @ 05/01/2018 05:11:15 (Electronic Signature) Report Signed by Proxy. XOCHILT
== END 2018-05-01 05:40 | disposition home or self-care (01) ==
LOC: MW.ED 03:02
DX: O03.9 Complete or unspecified spontaneous abortion without complication (principal)
CPT/HCPCS: 36415; 76817; 76817-26; 80048; 84702; 85025; 86900; 86901; 99283; 99284-25

== ENCOUNTER 2018-05-01 11:07 | Day surgery (SDC) | payer OTHER ==
--- NOTE | 2018-05-01 12:01 | PCM.PREANE ---
Preanesthetic Assessment - Procedure Proposed Procedure: D&E - Anesthesia/Transfusion/Family Hx Anesthesia History: Prior Anesthesia Without Reaction Family History of Anesthesia Reaction: No Transfusion History: No Prior Transfusion(s) Intubation History: Unknown - Review of Systems Other: Reports: None - Physical Assessment NPO Status Date: 05/01/18 NPO Status Time: 02:30 O2 Sat by Pulse Oximetry: 98 Respiratory Rate: 16 Vital Signs: Last Vital Signs Temp 36.5 C 05/01/18 11:37 Pulse 90 05/01/18 11:37 Resp 16 05/01/18 11:37 BP 132/71 05/01/18 11:37 Pulse Ox 98 05/01/18 11:37 Height: 5 ft 4 in Weight: 81.193 kg ASA Class: 2 Airway Class: Mallampati = 1 Dentition: Reports: Normal Dentition Thyro-Mental Finger Breadths: 3 Mouth Opening Finger Breadths: 3 ROM/Head Extension: Full - Allergies Allergies/Adverse Reactions: Allergies Allergy/AdvReac Type Severity Reaction Status Date / Time bee stings Allergy Hives Uncoded 05/01/18 09:33 - Blood Blood Available: Yes Product(s) Available: PRBC - Acknowledgements Anesthesia Type Planned: General Anesthesia Pt an Appropriate Candidate for the Planned Anesthesia: Yes Alternatives and Risks of Anesthesia Discussed w Pt/Guardian: Yes Pt/Guardian Understands and Agrees with Anesthesia Plan: Yes PreAnesthesia Questionnaire Other HEENT History: wears glasses, contacts Genitourinary History: Reports: Other (See Below) Other Genitourinary History: hx of vaginal herpes 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 HEMATOLOGY History: Reports: Ectopic , , Spontaneous Musculoskeletal History: Reports: None Neurological History: Reports: None Psychiatric History: Reports: Depression Endocrine/Metabolic History: Reports: None Hematologic History: Reports: Blood Transfusion(s) Immunologic History: Reports: None Oncologic (Cancer) History: Reports: Lymphoma Other Oncologic History: hx of Hodgkins Lymphoma, has been in remission for 14 years Dermatologic History: Reports: Other (See Below) Other Dermatologic History: genital herpes - Infectious Disease History Infectious Disease History: Reports: Herpes - Past Surgical History Head Surgeries/Procedures: Reports: None HEENT Surgical History: Reports: Other (See Below) Other HEENT Surgeries/Procedures: lymph node biopsy Cardiovascular Surgical History: Reports: Other (See Below) Other Cardiovascular Surgeries/Procedures: plasement and removal of port-a-cath Female Surgical History: Reports: Dilitation & Evacuation, Other (See Below) Other Female Surgeries/Procedures: laparoscopy for ectopic Musculoskeletal Surgical History: Reports: Other (See Below) Other Musculoskeletal Surgeries/Procedures:: bilateral carpal tunnel release Oncologic Surgical History: Reports: Other (See Below) Other Oncologic Surgeries/Procedures: hx of lymph node bx - SUBSTANCE USE Smoking Status *Q: Never Smoker Recreational Drug Use History: No - HOME MEDS Home Medications: Home Meds buPROPion [Wellbutrin XL] 150 mg PO DAILY 05/24/16 [History] valACYclovir HCl [Valtrex] 1,000 mg PO DAILY 05/24/16 [History] Pnv No.95/Ferrous Fum/Folic AC [ Multivitamin Tablet] 1 each PO DAILY [History]
[2018-05-01] MEDS ORDERED: Ondansetron 4 MG/2 ML SDV ONE (12:44)
[2018-05-01] MEDS ORDERED: Midazolam 1 MG/ML 2 ML SDV ONE (12:44)
[2018-05-01] MEDS ORDERED: Propofol 200 MG/20 ML SDV ONE (12:44)
[2018-05-01] MEDS ORDERED: Lidocaine 2% 5 ML SDV ONE (12:44)
[2018-05-01] MEDS ORDERED: fentaNYL 100 MCG/2 ML SDV ONE (12:44)
[2018-05-01] MEDS ORDERED: diphenhydrAMINE 50 MG/ML SDV ONE (13:06)
[2018-05-01] MEDS ORDERED: Ketorolac 30 MG/ML SDV ONE (13:12)
[2018-05-01] MEDS ORDERED: Acetaminophen/oxyCODONE 325-5 MG Tab PO PRN ×2 (13:17)
[2018-05-01] MEDS ORDERED: Ondansetron 4 MG/2 ML SDV IVPUSH PRN (13:17)
[2018-05-01] MEDS ORDERED: Ketorolac 30 MG/ML SDV IVPUSH PRN (13:17)
[2018-05-01] MEDS ORDERED: Morphine 4 MG/ML Syringe IVPUSH PRN (13:17)
[2018-05-01] MEDS ORDERED: Ketorolac 30 MG/ML SDV IVPUSH ONE (13:17)
[2018-05-01] MEDS ORDERED: Promethazine 25 MG/ML SDV IM PRN (13:17)
--- NOTE | 2018-05-01 13:20 | PCM.OPNOTE ---
- General Post-Op/Procedure Note Date of Surgery/Procedure: 05/01/18 Operative Procedure(s): D&E Pre Op Diagnosis: Blighted Ovum Post-Op Diagnosis: Same Anesthesia Technique: General LMA Primary Surgeon: Siva Wyman EBL in mLs: 100 Complications: None Condition: Good
--- NOTE | 2018-05-01 13:21 | PCM.DCSUM1 ---
Discharge Summary - Hospital Course Diagnosis: Stroke: No - Discharge Data Discharge Date: 05/01/18 Discharge Disposition: Home, Self-Care 01 Condition: Good - Patient Summary/Data Operative Procedure(s) Performed: D&E - Patient Instructions Diet: Usual Diet as Tolerated Activity: As Tolerated Driving: Do Not Drive Showering/Bathing: January Shower Notify Provider of: Fever, Increased Pain - Discharge Plan Home Medications: Home Meds buPROPion [Wellbutrin XL] 150 mg PO DAILY 05/24/16 [History] valACYclovir HCl [Valtrex] 1,000 mg PO DAILY 05/24/16 [History] Pnv No.95/Ferrous Fum/Folic AC [ Multivitamin Tablet] 1 each PO DAILY [History] - General Info Date of Service: 05/01/18 Functional Status: Reports: Pain Controlled - Review of Systems General: Reports: No Symptoms HEENT: Reports: No Symptoms Pulmonary: Reports: No Symptoms Cardiovascular: Reports: No Symptoms Gastrointestinal: Reports: No Symptoms Genitourinary: Reports: No Symptoms Musculoskeletal: Reports: No Symptoms Skin: Reports: No Symptoms Neurological: Reports: No Symptoms Psychiatric: Reports: No Symptoms - Patient Data Vitals - Most Recent: Last Vital Signs Temp 36.5 C 05/01/18 11:37 Pulse 90 05/01/18 11:37 Resp 16 05/01/18 12:01 BP 132/71 05/01/18 11:37 Pulse Ox 98 05/01/18 12:01 Weight - Most Recent: 81.193 kg Lab Results - Last 24 hrs: Laboratory Results - last 24 hr 05/01/18 05/01/18 Range/Units 11:50 11:50 WBC 8.87 (4.0-11.0) K/uL RBC 3.81 L (4.30-5.90) M/uL Hgb 12.0 (12.0-16.0) g/dL Hct 34.5 L (36.0-46.0) % MCV 90.6 (80.0-98.0) fL MCH 31.5 (27.0-32.0) pg MCHC 34.8 (31.0-37.0) g/dL RDW Std Deviation 42.5 (28.0-62.0) fl RDW Coeff of Gato 13 (11.0-15.0) % Plt Count 228 (150-400) K/uL MPV 8.80 (7.40-12.00) fL Nucleated RBC % 0.0 /100WBC Nucleated RBCs # 0 K/uL Blood Type A POSITIVE Antibody Screen NEGATIVE Med Orders - Current: Current Medications Ketorolac Tromethamine (Toradol) 30 mg IVPUSH ONETIME ONE Stop: 05/01/18 13:18 Ketorolac Tromethamine (Toradol) 30 mg IVPUSH Q6H PRN PRN Reason: Pain (severe 7-10) Stop: 05/06/18 13:17 Morphine Sulfate (Morphine) 4 mg IVPUSH Q2H PRN PRN Reason: Pain (severe 7-10) Ondansetron HCl (Zofran) 4 mg IVPUSH Q6H PRN PRN Reason: Nausea/Vomiting Oxycodone/Acetaminophen (Percocet 325-5 Mg) 1 tab PO Q4H PRN PRN Reason: Pain (moderate 4-6) Oxycodone/Acetaminophen (Percocet 325-5 Mg) 2 tab PO Q4H PRN PRN Reason: Pain (moderate 4-6) Promethazine HCl (Phenergan) 25 mg IM Q6H PRN PRN Reason: Nausea/Vomiting Discontinued Medications Diphenhydramine HCl (Benadryl) Confirm Administered Dose 50 mg .ROUTE .STK-MED ONE Stop: 05/01/18 13:07 Fentanyl (Sublimaze) Confirm Administered Dose 100 mcg .ROUTE .STK-MED ONE Stop: 05/01/18 12:45 Ketorolac Tromethamine (Toradol) Confirm Administered Dose 30 mg .ROUTE .STK- MED ONE Stop: 05/01/18 13:13 Lidocaine (Xylocaine-Mpf 2%) Confirm Administered Dose 5 ml .ROUTE .STK-MED ONE Stop: 05/01/18 12:45 Midazolam HCl (Versed 1 Mg/Ml) Confirm Administered Dose 2 mg .ROUTE .STK-MED ONE Stop: 05/01/18 12:45 Ondansetron HCl (Zofran) Confirm Administered Dose 4 mg .ROUTE .STK-MED ONE Stop: 05/01/18 12:45 Propofol (Diprivan 20 Ml) Confirm Administered Dose 200 mg .ROUTE .STK-MED ONE Stop: 05/01/18 12:45 - Exam General: Reports: Alert, Oriented HEENT: Reports: Pupils Equal, Pupils Reactive, EOMI, Mucous Membr. Moist/[place]: Reports: Supple Lungs: Reports: Clear to Auscultation, Normal Respiratory Effort Cardiovascular: Reports: Regular Rate, Regular Rhythm GI/Abdominal Exam: Normal Bowel Sounds, Soft, Non-Tender, No Organomegaly, No Distention, No Abnormal Bruit, No Mass, Pelvis Stable (Female) Exam: Normal External Exam, Normal Speculum Exam, Normal Bimanual Exam Rectal (Female) Exam: Normal Exam, Normal Rectal Tone Back Exam: Reports: Normal Inspection, Full Range of Motion Extremities: Normal Inspection, Normal Range of Motion, Non-Tender, No Pedal Edema, Normal Capillary Refill Skin: Reports: Warm, Dry, Intact Wound/Incisions: Reports: Healing Well Neurological: Reports: No New Focal Deficit Psy/Mental Status: Reports: Alert, Normal Affect, Normal Mood
--- NOTE | 2018-05-01 13:37 | PCM.POSTAN ---
POST ANESTHESIA ASSESSMENT - MENTAL STATUS Mental Status: Alert, Oriented - RESPIRATORY Respiratory Status: Respiratory Rate WNL, Airway Patent, O2 Saturation Stable - CARDIOVASCULAR CV Status: Pulse Rate WNL, Blood Pressure Stable - GASTROINTESTINAL GI Status: No Symptoms - PAIN Pain Score: 0 - POST OP HYDRATION Hydration Status: Adequate & Stable - OBSERVATIONS Free Text/Narrative:: Pt stable for discharge to phase II recovery.
--- NOTE | 2018-05-01 14:05 | PCM48HPAN ---
Post Anesthesia Note - EVALUATION WITHIN 48HRS OF ANESTHETIC Vital Signs in Normal Range: Yes Patient Participated in Evaluation: Yes Respiratory Function Stable: Yes Airway Patent: Yes Cardiovascular Function Stable: Yes Hydration Status Stable: Yes Pain Control Satisfactory: Yes Nausea and Vomiting Control Satisfactory: Yes Mental Status Recovered: Yes Resp Rate: 14
[2018-05-01 14:36] VITALS: BP 108/67
--- NOTE | 2018-05-01 18:32 | OR ---
SURGEON: Siva Wyman MD DATE OF PROCEDURE: 05/01/2018 PREOPERATIVE DIAGNOSIS: Blighted ovum. POSTOPERATIVE DIAGNOSIS: Blighted ovum. OPERATION PERFORMED: Dilatation and evacuation. CRAYON GRADER: None. ANESTHESIA: LMA, Ms. Sharmaine Wills. ESTIMATED BLOOD LOSS: Less than 100 mL. COMPLICATIONS: None. FINDINGS: Products of conception. INDICATIONS FOR SURGERY: This patient is 37. She has a blighted ovum. She has declining beta hCG-PAOLA. She has a repeated ultrasound which shows pole with no heart rate. An attempt of conservative measurements was failed. DESCRIPTION OF PROCEDURE: The patient was brought to the OR, properly identified, and after adequate level of anesthesia, the patient was placed in lithotomy position, prepped and draped in sterile fashion as usual. A weighted speculum was placed in the vagina. Straight catheter was used to empty the bladder. Single-tooth tenaculum applied to the cervix. The cervix was already dilated to accommodate #8 cannula. The cannula was placed in the endometrial cavity, and the cavity uniformly and completely suction evacuated of all products of conception. Once this was done, taken the small curette to make sure that the products of conception were removed. Satisfied with these findings and that the products of conception were removed, the procedure was ended. The instrument and hardware were retrieved. Count was complete. The patient tolerated the procedure well and went to recovery room in stable general condition. RYAN / LUDY /[id number]
== END 2018-05-01 15:02 | disposition home or self-care (01) ==
LOC: MW.SDS 11:07
PROVIDERS: ATTEND Obstetrics & Gynecology
DX: O02.0 Blighted ovum and nonhydatidiform mole (principal); F32.9 Major depressive disorder, single episode, unspecified; F41.9 Anxiety disorder, unspecified; Z91.030 Bee allergy status; Z79.899 Other long term (current) drug therapy; Z77.22 Contact with and (suspected) exposure to environmental tobacco smoke (acute) (chronic)
CPT/HCPCS: 36415; 59820; 85027; 86850; 86900; 86901; 88305; J1200; J1885; J2250; J2405; J2704; J3010; 01965

== ENCOUNTER 2019-02-14 10:33 | Observation (INO) | payer OTHER | END 2019-02-14 11:30 | disposition home or self-care (01) | LOC: MW.OB 10:33 | PROVIDERS: ADMIT Obstetrics & Gynecology; ATTEND Obstetrics & Gynecology | DX: O24.419 Gestational diabetes mellitus in pregnancy, unspecified control (principal); O99.89 Other specified diseases and conditions complicating pregnancy, childbirth and the puerperium; M54.9 Dorsalgia, unspecified; O09.13 Supervision of pregnancy with history of ectopic pregnancy, third trimester; Z3A.31 31 weeks gestation of pregnancy; Z79.899 Other long term (current) drug therapy | CPT/HCPCS: 59025 ==

== ENCOUNTER 2019-02-15 17:49 | Observation (INO) | payer OTHER | END 2019-02-15 18:44 | disposition home or self-care (01) | LOC: MW.OB 17:49 | PROVIDERS: ADMIT Obstetrics & Gynecology; ATTEND Obstetrics & Gynecology | DX: O36.8130 Decreased fetal movements, third trimester, not applicable or unspecified (principal); Z3A.31 31 weeks gestation of pregnancy | CPT/HCPCS: 59025 ==

== ENCOUNTER 2019-03-07 21:51 | Observation (INO) | payer OTHER ==
[2019-03-08] MEDS ORDERED: hydrOXYzine Pamoate 25 MG Cap PO ONE (00:34)
== END 2019-03-08 00:50 | disposition home or self-care (01) ==
LOC: MW.OB 21:51
PROVIDERS: ADMIT Obstetrics & Gynecology; ATTEND Obstetrics & Gynecology
DX: O47.03 False labor before 37 completed weeks of gestation, third trimester (principal); O09.523 Supervision of elderly multigravida, third trimester; Z3A.31 31 weeks gestation of pregnancy; Z91.030 Bee allergy status; Z79.82 Long term (current) use of aspirin; Z79.899 Other long term (current) drug therapy
CPT/HCPCS: 59025; A9270-GY

== ENCOUNTER 2019-03-20 00:20 | Observation (INO) | payer OTHER ==
[2019-03-20] MEDS ORDERED: Water For Irrigation,Sterile 1,000 ML Container IRR PRN (00:38)
[2019-03-20] MEDS ORDERED: Ondansetron 4 MG/2 ML SDV IVPUSH PRN (00:38)
[2019-03-20] MEDS ORDERED: Butorphanol 1 MG/ML SDV IVPUSH PRN (00:38)
[2019-03-20] MEDS ORDERED: Tranexamic Acid 1,000 MG in Sodium Chloride 0.9% 100 ML IV PRN (00:38)
[2019-03-20] MEDS ORDERED: Nalbuphine 10 MG/1 ML Vial IVPUSH PRN (00:38)
[2019-03-20] MEDS ORDERED: Sodium Chloride 0.9% 10 ML Syringe FLUSH PRN (00:38)
[2019-03-20] MEDS ORDERED: Carboprost Tromethamine 250 MCG/1 ML Amp IM PRN (00:38)
[2019-03-20] MEDS ORDERED: Ampicillin 2 GM in Sodium Chloride 0.9% 100 ML IV ONE (00:38)
[2019-03-20] MEDS ORDERED: Sodium Chloride 0.9% 2.5 ML Syringe FLUSH PRN (00:38)
[2019-03-20] MEDS ORDERED: Sodium Chloride 0.9% 10 ML SDV IV PRN (00:38)
[2019-03-20] MEDS ORDERED: Methylergonovine 0.2 MG/1 ML Amp IM PRN (00:38)
[2019-03-20] MEDS ORDERED: Misoprostol 200 MCG Tab PO PRN (00:38)
[2019-03-20] MEDS ORDERED: Lidocaine 1% 50 ML MDV INJECT PRN (00:38)
[2019-03-20] MEDS ORDERED: Misoprostol 25 MCG (1/4 of 100 MCG) Tab VAG PRN ×2 (00:41)
[2019-03-20] MEDS ORDERED: Terbutaline 1 MG/ML SDV SUBCUT PRN (00:41)
[2019-03-20] MEDS ORDERED: Misoprostol 25 MCG (1/4 of 100 MCG) Tab PO ONE (00:43)
[2019-03-20] MEDS ORDERED: Lactated Ringers 1,000 ML IV SCH (00:45)
[2019-03-20] MEDS ORDERED: Oxytocin/0.9 % Sodium Chloride 30 UNIT/500 ML BAG IV SCH ×2 (00:45)
[2019-03-20] MEDS: Ampicillin 1 GM in Sodium Chloride 0.9% 50 ML IV SCH ×2 (05:13→09:15)
--- NOTE | 2019-03-20 08:28 | PCM.LDHP ---
L&D History of Present Illness - General Date of Service: 03/20/19 Admit Problem/Dx: Patient Status Order with Admit Dx/Problem 03/20/19 00:38 Patient Status [ADT] Routine Admission Diagnosis/Problem Admission Diagnosis/Problem Source of Information: Patient History Limitations: Reports: No Limitations - History of Present Illness Improves with: Reports: None Worsens with: Reports: None Associated Symptoms: Reports: N - Related Data Allergies/Adverse Reactions: Allergies Allergy/AdvReac Type Severity Reaction Status Date / Time bee stings Allergy Hives Uncoded 03/07/19 11:03 Home Medications: Home Meds buPROPion [Wellbutrin XL] 150 mg PO DAILY 05/24/16 [History] valACYclovir HCl [Valtrex] 500 mg PO DAILY 05/24/16 [History] Pnv No.95/Ferrous Fum/Folic AC [ Multivitamin Tablet] 1 each PO DAILY [History] Aspirin [Adult Low Dose Aspirin EC] 1 tab PO DAILY 02/14/19 [History] Past Medical History Other HEENT History: wears glasses, contacts Cardiovascular History: Reports: None Respiratory History: Reports: None Gastrointestinal History: Reports: None Genitourinary History: Reports: None Other Genitourinary History: hx of vaginal herpes CEMENT BREAKER History: Reports: Ectopic , , Spontaneous Musculoskeletal History: Reports: None Neurological History: Reports: None Psychiatric History: Reports: Depression Endocrine/Metabolic History: Reports: Diabetes, Gestational Hematologic History: Reports: Blood Transfusion(s) Immunologic History: Reports: None Oncologic (Cancer) History: Reports: Lymphoma Other Oncologic History: hx of Hodgkins Lymphoma, has been in remission for 14 years Dermatologic History: Reports: None Other Dermatologic History: genital herpes - Infectious Disease History Infectious Disease History: Reports: Chicken Pox, Herpes, Human Papilloma Virus (HPV) - Past Surgical History Head Surgeries/Procedures: Reports: None HEENT Surgical History: Reports: Other (See Below) Other HEENT Surgeries/Procedures: lymph node biopsy GI Surgical History: Reports: None Female Surgical History: Reports: Dilitation & Evacuation, LEEP, Other (See Below) Other Female Surgeries/Procedures: laparoscopy for ectopic Musculoskeletal Surgical History: Reports: Other (See Below) Other Musculoskeletal Surgeries/Procedures:: bilateral carpal tunnel release Oncologic Surgical History: Reports: Other (See Below) Other Oncologic Surgeries/Procedures: hx of lymph node bx Social & Family History - Family History Family Medical History: Noncontributory HEENT: Reports: Impaired Vision Cardiac: Reports: Pacemaker Respiratory: Reports: Sleep Apnea GI: Reports: None : Reports: None OBGYN: Reports: Musculoskeletal: Reports: Arthritis Neurological: Reports: Dementia, Seizure Psychiatric: Reports: Abuse, Victim of, Learning Disability Endocrine/Metabolic: Reports: Other (See Below) Other Endocrine/Metabolic Family History: prediabetes Hematologic: Reports: None Immunologic: Reports: None Dermatologic: Reports: None Oncologic: Reports: Brain, Breast, Colon, Lung - Tobacco Use Smoking Status *Q: Never Smoker Second Hand Smoke Exposure: No - Caffeine Use Caffeine Use: Reports: Coffee - Recreational Drug Use Recreational Drug Use: No H&P Review of Systems - Review of Systems: Review Of Systems: See Below General: Reports: No Symptoms HEENT: Reports: No Symptoms Pulmonary: Reports: No Symptoms Cardiovascular: Reports: No Symptoms Gastrointestinal: Reports: No Symptoms Genitourinary: Reports: No Symptoms Musculoskeletal: Reports: No Symptoms Skin: Reports: No Symptoms Psychiatric: Reports: No Symptoms Neurological: Reports: No Symptoms Hematologic/Lymphatic: Reports: No Symptoms Immunologic: Reports: No Symptoms L&D Exam - Exam Exam: See Below - Vital Signs Weight: 92.533 kg - OB Specific Fundal Height In cm: 38 Contraction Intensity: Moderate Movement: Active Heart Tones: Present Presentation: Vertex - Weber Score Weber Score Cervix Position: Anterior Weber Score Consistency: Soft Weber Score Effacement: >80% Weber Score Dilation: 3-4 cm Weber Score Infant's Station: -1 ,0 Weber Score Total: 11 - Exam General: Alert, Oriented HEENT: PERRLA, Conjunctiva Clear, EACs Clear, EOMI, Hearing Intact, Mucosa Moist & [place], Nares Patent, Normal Nasal Septum, Posterior Pharynx Clear, TMs Clear Neck: Supple, Trachea Midline Lungs: Clear to Auscultation, Normal Respiratory Effort Cardiovascular: Regular Rate, Regular Rhythm GI/Abdominal Exam: Normal Bowel Sounds, Soft, Non-Tender, No Organomegaly, No Distention, No Abnormal Bruit, No Mass, Pelvis Stable Rectal Exam: Normal Exam, Normal Rectal Tone Genitourinary: Normal external exam, Normal bimanual exam, Normal speculum exam Back Exam: Normal Inspection, Full Range of Motion Extremities: Normal Inspection, Normal Range of Motion, Non-Tender, No Pedal Edema, Normal Capillary Refill Skin: Warm, Dry, Intact Neurological: Cranial Nerves Intact, Reflexes Equal Bilateral Psychiatric: Alert, Normal Affect, Normal Mood - Patient Data Lab Results Last 24 hrs: Laboratory Results - last 24 hr 03/20/19 03/20/19 03/20/19 Range/Units 00:53 00:53 06:05 WBC 8.69 (4.0-11.0) K/uL RBC 3.42 L (4.30-5.90) M/uL Hgb 10.8 L (12.0-16.0) g/dL Hct 31.3 L (36.0-46.0) % MCV 91.5 (80.0-98.0) fL MCH 31.6 (27.0-32.0) pg MCHC 34.5 (31.0-37.0) g/dL RDW Std Deviation 45.9 (28.0-62.0) fl RDW Coeff of Gato 14 (11.0-15.0) % Plt Count 239 (150-400) K/uL MPV 9.50 (7.40-12.00) fL POC Glucose 74 (60-110) mg/dL Blood Type A POSITIVE Antibody Screen NEGATIVE Result Diagrams: 03/20/19 00:53 Problem List Initiated/Reviewed/Updated: Yes Orders Last 24hrs: Active Orders 24 hr Category Date Time Status Patient Status [ADT] Routine ADT 03/20/19 00:38 Active Bedrest Bathroom Privileges [RC] ASDIRECTED Care 03/20/19 00:41 Active Communication Order [RC] ASDIRECTED Care 03/20/19 00:41 Active Communication Order [RC] ASDIRECTED Care 03/20/19 00:41 Active Communication Order [RC] ASDIRECTED Care 03/20/19 00:41 Active Heart Tones [RC] CONTINUOUS Care 03/20/19 00:38 Active Non Stress Test [RC] PER UNIT ROUTINE Care 03/20/19 00:38 Active May Shower [RC] ASDIRECTED Care 03/20/19 00:38 Active Notify Provider [RC] PRN Care 03/20/19 00:38 Active Notify Provider [RC] PRN Care 03/20/19 00:41 Active Notify Provider [RC] PRN Care 03/20/19 00:41 Active Notify Provider [RC] STAT Care 03/20/19 00:41 Active Up ad Yolie [RC] ASDIRECTED Care 03/20/19 00:38 Active Vaginal Exam [RC] PRN Care 03/20/19 00:38 Active Vaginal Exam [RC] PRN Care 03/20/19 00:41 Active Vital Signs [RC] PER UNIT ROUTINE Care 03/20/19 00:38 Active Vital Signs [RC] PER UNIT ROUTINE Care 03/20/19 00:41 Active Regular Diet [DIET] Diet 03/20/19 Breakfast Active Ampicillin 1 gm Med 03/20/19 04:00 Active Sodium Chloride 0.9% [Normal Saline] 50 ml IV Q4H Butorphanol [Stadol] Med 03/20/19 00:38 Active 1 mg IVPUSH Q1H PRN Carboprost Tromethamine [Hemabate DS] Med 03/20/19 00:38 Active 250 mcg IM ASDIRECTED PRN Lactated Ringers [Ringers, Lactated] 1,000 ml Med 03/20/19 00:45 Active IV ASDIRECTED Lidocaine 1% [Xylocaine 1%] Med 03/20/19 00:38 Active 50 ml INJECT ONETIME PRN Methylergonovine [Methergine] Med 03/20/19 00:38 Active 0.2 mg IM ASDIRECTED PRN Nalbuphine [Nubain] Med 03/20/19 00:38 Active 10 mg IVPUSH Q1H PRN Ondansetron [Zofran] Med 03/20/19 00:38 Active 4 mg IVPUSH Q6H PRN Oxytocin/0.9 % Sodium Chloride [Oxytocin 30 Unit/500 ML Med 03/20/19 00:45 Active -NS] 30 unit in 500 ml IV TITRATE Oxytocin/0.9 % Sodium Chloride [Oxytocin 30 Unit/500 ML Med 03/20/19 00:45 Active -NS] 30 unit in 500 ml IV TITRATE Sodium Chloride 0.9% [Normal Saline] Med 03/20/19 00:38 Active 10 ml IV ASDIRECTED PRN Sodium Chloride 0.9% [Saline Flush] Med 03/20/19 00:38 Active 10 ml FLUSH ASDIRECTED PRN Sodium Chloride 0.9% [Saline Flush] Med 03/20/19 00:38 Active 2.5 ml FLUSH ASDIRECTED PRN Terbutaline [Brethine] Med 03/20/19 00:41 Active 0.25 mg SUBCUT ASDIRECTED PRN Tranexamic Acid [Cyklokapron] 1,000 mg Med 03/20/19 00:38 Active Sodium Chloride 0.9% [Normal Saline] 100 ml IV ONETIME Water For Irrigation,Sterile [Sterile Water for Med 03/20/19 00:38 Active Irrigation] 1,000 ml IRR ASDIRECTED PRN miSOPROStol [Cytotec] Med 03/20/19 00:38 Active 200 mcg PO ONETIME PRN miSOPROStol [Cytotec] Med 03/20/19 00:41 Active 25 mcg VAG ONETIME PRN miSOPROStol [Cytotec] Med 03/20/19 00:41 Active 25 mcg VAG Q4H PRN Scalp Electrode [WOMSER] Per Unit Routine Oth 03/20/19 00:38 Ordered Medication Administration Instruction [OM.PC] Q3H Oth 03/20/19 00:45 Ordered Peripheral IV Insertion Adult [OM.PC] Routine Oth 03/20/19 00:38 Ordered Resuscitation Status Routine Resus Stat 03/20/19 00:38 Ordered Medication Orders Butorphanol Tartrate (Stadol) 1 mg IVPUSH Q1H PRN PRN Reason: Pain Carboprost Tromethamine (Hemabate Ds) 250 mcg IM ASDIRECTED PRN PRN Reason: Post Hemorrhage Lactated Ringer's (Ringers, Lactated) 1,000 mls @ 150 mls/hr IV ASDIRECTED JOSE RAUL Oxytocin/Sodium Chloride (Oxytocin 30 Unit/500 Ml-Ns) 30 unit in 500 mls @ 500 mls/hr IV TITRATE JOSE RAUL Tranexamic Acid 1,000 mg/ (Sodium Chloride) 110 mls @ 660 mls/hr IV ONETIME PRN PRN Reason: Bleeding Oxytocin/Sodium Chloride (Oxytocin 30 Unit/500 Ml-Ns) 30 unit in 500 mls @ 2 mls/hr IV TITRATE JOSE RAUL; Protocol Ampicillin Sodium 1 gm/ Sodium (Chloride) 50 mls @ 100 mls/hr IV Q4H JOSE RAUL Last Admin: 03/20/19 05:13 Dose: 100 mls/hr Lidocaine HCl (Xylocaine 1%) 50 ml INJECT ONETIME PRN PRN Reason: Laceration repair Methylergonovine Maleate (Methergine) 0.2 mg IM ASDIRECTED PRN PRN Reason: Post Hemorrhage Misoprostol (Cytotec) 200 mcg PO ONETIME PRN PRN Reason: Post Hemorrhage Misoprostol (Cytotec) 25 mcg VAG ONETIME PRN PRN Reason: Cervical Ripening Last Admin: 03/20/19 01:50 Dose: 25 mcg Misoprostol (Cytotec) 25 mcg VAG Q4H PRN PRN Reason: Cervical Ripening Nalbuphine HCl (Nubain) 10 mg IVPUSH Q1H PRN PRN Reason: Pain (severe 7-10) Ondansetron HCl (Zofran) 4 mg IVPUSH Q6H PRN PRN Reason: Nausea/Vomiting Sodium Chloride (Saline Flush) 10 ml FLUSH ASDIRECTED PRN PRN Reason: Keep Vein Open Sodium Chloride (Saline Flush) 2.5 ml FLUSH ASDIRECTED PRN PRN Reason: Keep Vein Open Sodium Chloride (Normal Saline) 10 ml IV ASDIRECTED PRN PRN Reason: IV Use Sterile Water (Sterile Water For Irrigation) 1,000 ml IRR ASDIRECTED PRN PRN Reason: delivery Terbutaline Sulfate (Brethine) 0.25 mg SUBCUT ASDIRECTED PRN PRN Reason: Tacysystole Assessment/Plan Comment:: Intrauterine 38+. Her is complicated by the fact that she is gestational diabetic and she have a positive GBS culture she was admitted for elective induction review side effects and Pitocin this morning when I examined her she is 4 cm 90% vertex -1 station and artificial rupture of the membrane is done and clear fluid the patient is already have to dose of antibiotic. We will start her on Pitocin as needed and I am anticipating vaginal
[2019-03-20] MEDS ORDERED: fentaNYL 100 MCG/2 ML SDV ONE (09:20)
--- NOTE | 2019-03-20 10:31 | PCM.PREANE ---
Preanesthetic Assessment - Anesthesia/Transfusion/Family Hx Anesthesia History: Prior Anesthesia Without Reaction Family History of Anesthesia Reaction: No Transfusion History: Prior Transfusion Without Reaction Intubation History: Unknown - Review of Systems General: No Symptoms Pulmonary: No Symptoms Cardiovascular: No Symptoms Gastrointestinal: No Symptoms Neurological: No Symptoms Other: Reports: None - Physical Assessment Height: 5 ft 4 in Weight: 92.533 kg ASA Class: 2 Mental Status: Alert & Oriented x3 Airway Class: Mallampati = 2 Dentition: Reports: Normal Dentition Thyro-Mental Finger Breadths: 3 Mouth Opening Finger Breadths: 3 ROM/Head Extension: Full Lungs: Clear to Auscultation, Normal Respiratory Effort Cardiovascular: Regular Rate, Regular Rhythm - Lab Values: Laboratory Last Values WBC 8.69 K/uL (4.0-11.0) 03/20/19 00:53 RBC 3.42 M/uL (4.30-5.90) L 03/20/19 00:53 Hgb 10.8 g/dL (12.0-16.0) L 03/20/19 00:53 Hct 31.3 % (36.0-46.0) L 03/20/19 00:53 MCV 91.5 fL (80.0-98.0) 03/20/19 00:53 MCH 31.6 pg (27.0-32.0) 03/20/19 00:53 MCHC 34.5 g/dL (31.0-37.0) 03/20/19 00:53 RDW Std Deviation 45.9 fl (28.0-62.0) 03/20/19 00:53 RDW Coeff of Gato 14 % (11.0-15.0) 03/20/19 00:53 Plt Count 239 K/uL (150-400) 03/20/19 00:53 MPV 9.50 fL (7.40-12.00) 03/20/19 00:53 POC Glucose 74 mg/dL (60-110) 03/20/19 06:05 Blood Type A POSITIVE 03/20/19 00:53 Antibody Screen NEGATIVE 03/20/19 00:53 - Allergies Allergies/Adverse Reactions: Allergies Allergy/AdvReac Type Severity Reaction Status Date / Time bee stings Allergy Hives Uncoded 03/07/19 11:03 - Blood Blood Available: No - Anesthesia Plan Pre-Op Medication Ordered: None - Acknowledgements Anesthesia Type Planned: Epidural Pt an Appropriate Candidate for the Planned Anesthesia: Yes Alternatives and Risks of Anesthesia Discussed w Pt/Guardian: Yes Pt/Guardian Understands and Agrees with Anesthesia Plan: Yes PreAnesthesia Questionnaire Other HEENT History: wears glasses, contacts Cardiovascular History: Reports: None Respiratory History: Reports: None Gastrointestinal History: Reports: None Genitourinary History: Reports: None Other Genitourinary History: hx of vaginal herpes SOW MANAGER History: Reports: Ectopic , , Spontaneous Musculoskeletal History: Reports: None Neurological History: Reports: None Psychiatric History: Reports: Depression Endocrine/Metabolic History: Reports: Diabetes, Gestational Hematologic History: Reports: Blood Transfusion(s) Immunologic History: Reports: None Oncologic (Cancer) History: Reports: Lymphoma Other Oncologic History: hx of Hodgkins Lymphoma, has been in remission for 14 years Dermatologic History: Reports: None Other Dermatologic History: genital herpes - Infectious Disease History Infectious Disease History: Reports: Chicken Pox, Herpes, Human Papilloma Virus (HPV) - Past Surgical History Head Surgeries/Procedures: Reports: None HEENT Surgical History: Reports: Other (See Below) Other HEENT Surgeries/Procedures: lymph node biopsy GI Surgical History: Reports: None Female Surgical History: Reports: Dilitation & Evacuation, LEEP, Other (See Below) Other Female Surgeries/Procedures: laparoscopy for ectopic Musculoskeletal Surgical History: Reports: Other (See Below) Other Musculoskeletal Surgeries/Procedures:: bilateral carpal tunnel release Oncologic Surgical History: Reports: Other (See Below) Other Oncologic Surgeries/Procedures: hx of lymph node bx - SUBSTANCE USE Smoking Status *Q: Never Smoker Second Hand Smoke Exposure: No Recreational Drug Use History: No - HOME MEDS Home Medications: Home Meds buPROPion [Wellbutrin XL] 150 mg PO DAILY 05/24/16 [History] valACYclovir HCl [Valtrex] 500 mg PO DAILY 05/24/16 [History] Pnv No.95/Ferrous Fum/Folic AC [ Multivitamin Tablet] 1 each PO DAILY [History] Aspirin [Adult Low Dose Aspirin EC] 1 tab PO DAILY 02/14/19 [History] - CURRENT (IN HOUSE) MEDS Current Meds: Current Medications Butorphanol Tartrate (Stadol) 1 mg IVPUSH Q1H PRN PRN Reason: Pain Carboprost Tromethamine (Hemabate Ds) 250 mcg IM ASDIRECTED PRN PRN Reason: Post Hemorrhage Lactated Ringer's (Ringers, Lactated) 1,000 mls @ 150 mls/hr IV ASDIRECTED JOSE RAUL Last Admin: 03/20/19 10:22 Dose: 150 mls/hr Oxytocin/Sodium Chloride (Oxytocin 30 Unit/500 Ml-Ns) 30 unit in 500 mls @ 500 mls/hr IV TITRATE [facility] Tranexamic Acid 1,000 mg/ (Sodium Chloride) 110 mls @ 660 mls/hr IV ONETIME PRN PRN Reason: Bleeding Oxytocin/Sodium Chloride (Oxytocin 30 Unit/500 Ml-Ns) 30 unit in 500 mls @ 2 mls/hr IV TITRATE [facility]; Protocol Last Admin: 03/20/19 10:17 Dose: 2 munits/min, 2 mls/hr Ampicillin Sodium 1 gm/ Sodium (Chloride) 50 mls @ 100 mls/hr IV Q4H [facility] Last Admin: 03/20/19 09:15 Dose: 100 mls/hr Lidocaine HCl (Xylocaine 1%) 50 ml INJECT ONETIME PRN PRN Reason: Laceration repair Methylergonovine Maleate (Methergine) 0.2 mg IM ASDIRECTED PRN PRN Reason: Post Hemorrhage Misoprostol (Cytotec) 200 mcg PO ONETIME PRN PRN Reason: Post Hemorrhage Misoprostol (Cytotec) 25 mcg VAG ONETIME PRN PRN Reason: Cervical Ripening Last Admin: 03/20/19 01:50 Dose: 25 mcg Misoprostol (Cytotec) 25 mcg VAG Q4H PRN PRN Reason: Cervical Ripening Nalbuphine HCl (Nubain) 10 mg IVPUSH Q1H PRN PRN Reason: Pain (severe 7-10) Ondansetron HCl (Zofran) 4 mg IVPUSH Q6H PRN PRN Reason: Nausea/Vomiting Sodium Chloride (Saline Flush) 10 ml FLUSH ASDIRECTED PRN PRN Reason: Keep Vein Open Sodium Chloride (Saline Flush) 2.5 ml FLUSH ASDIRECTED PRN PRN Reason: Keep Vein Open Sodium Chloride (Normal Saline) 10 ml IV ASDIRECTED PRN PRN Reason: IV Use Sterile Water (Sterile Water For Irrigation) 1,000 ml IRR ASDIRECTED PRN PRN Reason: delivery Terbutaline Sulfate (Brethine) 0.25 mg SUBCUT ASDIRECTED PRN PRN Reason: Tacysystole Discontinued Medications Fentanyl (Sublimaze) Confirm Administered Dose 100 mcg .ROUTE .STK-MED ONE Stop: 03/20/19 09:21 Ampicillin Sodium 2 gm/ Sodium (Chloride) 100 mls @ 200 mls/hr IV ONETIME ONE Stop: 03/20/19 01:07 Last Admin: 03/20/19 01:09 Dose: 200 mls/hr Fentanyl/Bupivacaine HCl (Btncdqnt-Uavvg-Zw 2 Mcg/Ml-0.125%) Confirm Administered Dose 100 mls @ as directed .ROUTE .STK-MED ONE Stop: 03/20/19 09:19 Misoprostol (Cytotec) 25 mcg PO ONETIME ONE Stop: 03/20/19 00:44 Last Admin: 03/20/19 01:50 Dose: 25 mcg
[2019-03-20] MEDS ORDERED: Ibuprofen 400 MG Tab PO PRN (12:46)
[2019-03-20] MEDS ORDERED: Acetaminophen 500 MG Tab PO PRN (12:46)
[2019-03-20] MEDS ORDERED: Lanolin 100% Cream 7 GM Tube TOP PRN (12:46)
[2019-03-20] MEDS ORDERED: Witch Hazel Medicated Pads 40/Jar TOP PRN (12:46)
[2019-03-20] MEDS ORDERED: Benzocaine/Menthol 20%-0.5% Spray 78 GM Cannister TOP PRN (12:46)
[2019-03-20] MEDS ORDERED: oxyCODONE 5 MG Tab PO PRN (12:46)
[2019-03-20] MEDS ORDERED: Bisacodyl 10 MG Supp RECTAL PRN (12:46)
[2019-03-20] MEDS ORDERED: Methylergonovine 0.2 MG/1 ML Amp ONE (13:16)
[2019-03-20] MEDS ORDERED: Oxytocin/0.9 % Sodium Chloride 30 UNIT/500 ML BAG ONE (13:17)
--- NOTE | 2019-03-20 14:14 | OR ---
SURGEON: Siva Wyman MD DATE OF PROCEDURE: 03/20/2019 Ms. Centeno is 38, she is para 4-0-0-4, all have been delivered by normal spontaneous vaginal delivery. She is followed in our office in this . Her care was complicated by gestational diabetes and she has a positive GBS cultures. The patient had a normal followup examination, and according to the high-risk protocol, she was admitted at 38+ for elective induction and she was induced with Cytotec and Pitocin. She responded to both of them. By the time that she had an artificial rupture of the membrane by me, she was 4 cm, complete, vertex, and -2. She had epidural anesthesia for labor analgesia and then she continued to progress without any problem and then she was able to accomplish with a normal spontaneous vaginal delivery of a female fetus, cried immediately. score reported to be 7 and 9, the weight is not available. The placenta delivered spontaneous, complete, and intact. The perineum was intact. There was no labial or vaginal laceration. There was no need for episiotomy. The heart rate was category 1 through the entire process of labor and estimated blood loss was 350 mL to 400. I was assisted with Dr. Solorzano with this vaginal . RYAN / LUDY /[id number]
[2019-03-20] MEDS: Ibuprofen 800 MG Tab PO PRN ×2 (14:50→22:44)
[2019-03-21] MEDS: Acetaminophen 500 MG Tab PO PRN ×3 (03:52→14:39)
[2019-03-21] MEDS: Docusate Sodium 100 MG Cap PO PRN ×2 (03:52→09:09)
[2019-03-21] MEDS: Ibuprofen 800 MG Tab PO PRN ×2 (05:38→12:08)
--- NOTE | 2019-03-21 07:09 | PCM48HPAN ---
Post Anesthesia Note - EVALUATION WITHIN 48HRS OF ANESTHETIC Vital Signs in Normal Range: Yes Patient Participated in Evaluation: Yes Respiratory Function Stable: Yes Airway Patent: Yes Cardiovascular Function Stable: Yes Hydration Status Stable: Yes Pain Control Satisfactory: Yes Nausea and Vomiting Control Satisfactory: Yes Mental Status Recovered: Yes Pulse Rate: 98 SaO2: 84 Resp Rate: 17 Temperature: 97.5 F Blood Pressure: 130/77
--- NOTE | 2019-03-21 09:41 | PCM.DCSUM1 ---
Discharge Summary - Hospital Course Diagnosis: Stroke: No - Discharge Data Discharge Date: 03/21/19 Discharge Disposition: Home, Self-Care 01 Condition: Good - Patient Instructions Diet: Usual Diet as Tolerated Activity: As Tolerated Driving: Do Not Drive Showering/Bathing: May Shower Notify Provider of: Fever, Increased Pain, Nausea and/or Vomiting - Discharge Plan Home Medications: Home Meds buPROPion [Wellbutrin XL] 150 mg PO DAILY 05/24/16 [History] valACYclovir HCl [Valtrex] 500 mg PO DAILY 05/24/16 [History] Pnv No.95/Ferrous Fum/Folic AC [ Multivitamin Tablet] 1 each PO DAILY [History] Aspirin [Adult Low Dose Aspirin EC] 1 tab PO DAILY 02/14/19 [History] Referrals: Paula Gonzalez [Ordering Only Provider] - Siva Wyman MD [Primary Care Provider] - 05/02/19 1:30 pm - Discharge Summary/Plan Comment DC Time >30 min.: Yes - General Info Date of Service: 03/21/19 Functional Status: Reports: Pain Controlled - Review of Systems General: Reports: No Symptoms HEENT: Reports: No Symptoms Pulmonary: Reports: No Symptoms Cardiovascular: Reports: No Symptoms Gastrointestinal: Reports: No Symptoms Genitourinary: Reports: No Symptoms Musculoskeletal: Reports: No Symptoms Skin: Reports: No Symptoms Neurological: Reports: No Symptoms Psychiatric: Reports: No Symptoms - Patient Data Vitals - Most Recent: Last Vital Signs Temp 36.2 C 03/21/19 07:48 Pulse 96 03/21/19 07:48 Resp 16 03/21/19 07:48 BP 112/70 03/21/19 07:48 Pulse Ox 98 03/21/19 07:48 Weight - Most Recent: 92.533 kg Lab Results - Last 24 hrs: Laboratory Results - last 24 hr 03/21/19 Range/Units 05:25 Hgb 9.6 L (12.0-16.0) g/dL Hct 28.3 L (36.0-46.0) % Med Orders - Current: Current Medications Acetaminophen (Tylenol Extra Strength) 500 mg PO Q4H PRN PRN Reason: Pain Acetaminophen (Tylenol Extra Strength) 1,000 mg PO Q4H PRN PRN Reason: Pain Last Admin: 03/21/19 08:15 Dose: 1,000 mg Benzocaine/Menthol (Dermoplast Pain Relief 20%-0.5% [place]) 78 gm TOP ASDIRECTED PRN PRN Reason: Perineal Comfort Measure Last Admin: 03/20/19 14:49 Dose: 1 applic Bisacodyl (Dulcolax) 10 mg RECTAL ONETIME PRN PRN Reason: Constipation Docusate Sodium (Colace) 100 mg PO BID PRN PRN Reason: Constipation Last Admin: 03/21/19 09:09 Dose: 100 mg Emollient Ointment (Lansinoh Hpa) 0 gm TOP ASDIRECTED PRN PRN Reason: Sore Nipples Last Admin: 03/20/19 14:48 Dose: 1 applic Ibuprofen (Motrin) 400 mg PO Q4H PRN PRN Reason: Pain Ibuprofen (Motrin) 800 mg PO Q6H PRN PRN Reason: Pain Last Admin: 03/21/19 05:38 Dose: 800 mg Oxycodone HCl (Oxycodone) 5 mg PO Q2H PRN PRN Reason: Pain Witch Macie (Tucks) 1 pad TOP ASDIRECTED PRN PRN Reason: comfort care Last Admin: 03/20/19 14:49 Dose: 1 applic Discontinued Medications Butorphanol Tartrate (Stadol) 1 mg IVPUSH Q1H PRN PRN Reason: Pain Carboprost Tromethamine (Hemabate Ds) 250 mcg IM ASDIRECTED PRN PRN Reason: Post Hemorrhage Fentanyl (Sublimaze) Confirm Administered Dose 100 mcg .ROUTE .STK-MED ONE Stop: 03/20/19 09:21 Ampicillin Sodium 2 gm/ Sodium (Chloride) 100 mls @ 200 mls/hr IV ONETIME ONE Stop: 03/20/19 01:07 Last Admin: 03/20/19 01:09 Dose: 200 mls/hr Lactated Ringer's (Ringers, Lactated) 1,000 mls @ 150 mls/hr IV ASDIRECTED JOSE RAUL Last Admin: 03/20/19 10:22 Dose: 150 mls/hr Oxytocin/Sodium Chloride (Oxytocin 30 Unit/500 Ml-Ns) 30 unit in 500 mls @ 500 mls/hr IV TITRATE JOSE RAUL Last Admin: 03/20/19 13:30 Dose: 500 mls/hr Tranexamic Acid 1,000 mg/ (Sodium Chloride) 110 mls @ 660 mls/hr IV ONETIME PRN PRN Reason: Bleeding Oxytocin/Sodium Chloride (Oxytocin 30 Unit/500 Ml-Ns) 30 unit in 500 mls @ 2 mls/hr IV TITRATE JOSE RAUL; Protocol Last Titration: 03/20/19 11:24 Dose: 6 munits/min, 6 mls/hr Ampicillin Sodium 1 gm/ Sodium (Chloride) 50 mls @ 100 mls/hr IV Q4H JOSE RAUL Last Admin: 03/20/19 09:15 Dose: 100 mls/hr Fentanyl/Bupivacaine HCl (Quutdiqy-Glige-Gj 2 Mcg/Ml-0.125%) Confirm Administered Dose 100 mls @ as directed .ROUTE .STK-MED ONE Stop: 03/20/19 09:19 Oxytocin/Sodium Chloride (Oxytocin 30 Unit/500 Ml-Ns) Confirm Administered Dose 30 unit in 500 mls @ as directed .ROUTE .STK-MED ONE Stop: 03/20/19 13:18 Lidocaine HCl (Xylocaine 1%) 50 ml INJECT ONETIME PRN PRN Reason: Laceration repair Methylergonovine Maleate (Methergine) 0.2 mg IM ASDIRECTED PRN PRN Reason: Post Hemorrhage Methylergonovine Maleate (Methergine) Confirm Administered Dose 0.2 mg .ROUTE .STK-MED ONE Stop: 03/20/19 13:17 Last Admin: 03/20/19 13:29 Dose: 0.2 mg Misoprostol (Cytotec) 200 mcg PO ONETIME PRN PRN Reason: Post Hemorrhage Misoprostol (Cytotec) 25 mcg VAG ONETIME PRN PRN Reason: Cervical Ripening Last Admin: 03/20/19 01:50 Dose: 25 mcg Misoprostol (Cytotec) 25 mcg VAG Q4H PRN PRN Reason: Cervical Ripening Misoprostol (Cytotec) 25 mcg PO ONETIME ONE Stop: 03/20/19 00:44 Last Admin: 03/20/19 01:50 Dose: 25 mcg Nalbuphine HCl (Nubain) 10 mg IVPUSH Q1H PRN PRN Reason: Pain (severe 7-10) Ondansetron HCl (Zofran) 4 mg IVPUSH Q6H PRN PRN Reason: Nausea/Vomiting Last Admin: 03/20/19 11:34 Dose: 4 mg Sodium Chloride (Saline Flush) 10 ml FLUSH ASDIRECTED PRN PRN Reason: Keep Vein Open Sodium Chloride (Saline Flush) 2.5 ml FLUSH ASDIRECTED PRN PRN Reason: Keep Vein Open Sodium Chloride (Normal Saline) 10 ml IV ASDIRECTED PRN PRN Reason: IV Use Sterile Water (Sterile Water For Irrigation) 1,000 ml IRR ASDIRECTED PRN PRN Reason: delivery Terbutaline Sulfate (Brethine) 0.25 mg SUBCUT ASDIRECTED PRN PRN Reason: Tacysystole - Exam General: Reports: Alert, Oriented HEENT: Reports: Pupils Equal, Pupils Reactive, EOMI, Mucous Membr. Moist/[place] Neck: Reports: Supple Lungs: Reports: Clear to Auscultation, Normal Respiratory Effort Cardiovascular: Reports: Regular Rate, Regular Rhythm GI/Abdominal Exam: Normal Bowel Sounds, Soft, Non-Tender, No Organomegaly, No Distention, No Abnormal Bruit, No Mass, Pelvis Stable (Female) Exam: Normal External Exam, Normal Speculum Exam, Normal Bimanual Exam Rectal (Female) Exam: Normal Exam, Normal Rectal Tone Back Exam: Reports: Normal Inspection, Full Range of Motion Extremities: Normal Inspection, Normal Range of Motion, Non-Tender, No Pedal Edema, Normal Capillary Refill Skin: Reports: Warm, Dry, Intact Wound/Incisions: Reports: Healing Well Neurological: Reports: No New Focal Deficit Psy/Mental Status: Reports: Alert, Normal Affect, Normal Mood
[2019-03-21 11:22] VITALS: BP 111/68
== END 2019-03-21 15:37 | disposition home or self-care (01) ==
LOC: MW.OBCHECK 00:20 → MW.OB 00:21
PROVIDERS: ADMIT Obstetrics & Gynecology; ATTEND Obstetrics & Gynecology
DX: O24.419 Gestational diabetes mellitus in pregnancy, unspecified control (principal); O99.344 Other mental disorders complicating childbirth; F32.9 Major depressive disorder, single episode, unspecified; Z3A.31 31 weeks gestation of pregnancy; Z37.0 Single live birth; Z79.82 Long term (current) use of aspirin; Z79.899 Other long term (current) drug therapy; Z91.030 Bee allergy status
CPT/HCPCS: 36415; 51702; 59025; 59409; 82962; 85014; 85018; 85027; 86850; 86900; 86901; A9270; J0290; J2210; J2405; J2590; J3010; J7030; J7050; J7120

== ENCOUNTER 2019-07-27 19:53 | Emergency (ER) | payer OTHER ==
[2019-07-27 20:07] VITALS: BP 123/76; PULSE 102
--- NOTE | 2019-07-27 20:18 | EDM.PDOC ---
ED HPI GENERAL MEDICAL PROBLEM - General Chief Complaint: Skin Complaint Stated Complaint: RASH Time Seen by Provider: 07/27/19 19:56 Source of Information: Reports: Patient History Limitations: Reports: No Limitations - History of Present Illness INITIAL COMMENTS - FREE TEXT/NARRATIVE: HISTORY AND PHYSICAL: History of present illness: Patient is a 38-year-old female presents to the ED today with concern of rash that might be related to bedbugs. Patient states she stayed in a hotel room last night in [place] and woke up with an itchy rash that looks like bug bites. Patient states she did not see any bugs in the bed but she also did not work. Patient states just got back to town and was concerned about the bites. Patient denies any other symptoms or concerns. Patient denies fever, chills, chest pain, shortness of breath, or cough. Denies headache, neck stiff ness, change in vision, syncope, or near syncope. Denies nausea, vomiting, abdominal pain, diarrhea, constipation, or dysuria. Has not noted any blood in urine or stool. Patient has been eating and drinking appropriately. Review of systems: As per history of present illness and below otherwise all systems reviewed and negative. Past medical history: As per history of present illness and as reviewed below otherwise noncontributory. Surgical history: As per history of present illness and as reviewed below otherwise noncontributory. Social history: See social history for further information Family history: As per history of present illness and as reviewed below otherwise noncontributory. Physical exam: General: Patient is alert, oriented, and in no acute distress. Patient sitting comfortably on exam table. HEENT: Atraumatic, normocephalic, pupils equal and reactive bilaterally, negative for conjunctival pallor or scleral icterus, mucous membranes moist, TMs normal bilaterally, throat clear, neck supple, nontender, trachea midline. No drooling or trismus noted. No meningeal signs. No hot potato voice noted. Lungs: Clear to auscultation, breath sounds equal bilaterally, chest nontender. Heart: S1S2, regular rate and rhythm without overt murmur Abdomen: Soft, nondistended, nontender. Negative for masses or hepatosplenomegaly. Negative for costovertebral tenderness. Pelvis: Stable nontender. Genitourinary: Deferred. Rectal: Deferred. Skin: Intact, warm, dry. No lesions. Nonspecific generalized macular papular rash. Extremities: Atraumatic, negative for cords or calf pain. Neurovascular unremarkable. Neuro: Awake, alert, oriented. Cranial nerves II through XII unremarkable. Cerebellum unremarkable. Motor and sensory unremarkable throughout. Exam nonfocal. Notes: Discussed the importance for follow-up with a primary care provider. Voices understanding and is agreeable to plan of care. Denies any further questions or concerns at this time. Diagnostics: None Therapeutics: None Prescription: None Impression: Dermatitis Plan: 1. You can alternate ibuprofen and Tylenol as directed for pain and discomfort. 2. Follow-up with a primary care provider as discussed. Return to the ED as needed and as discussed. Definitive disposition and diagnosis as appropriate pending reevaluation and review of above. - Related Data Allergies Allergy/AdvReac Type Severity Reaction Status Date / Time bee stings Allergy Hives Uncoded 07/27/19 20:04 Home Meds: Home Meds buPROPion [Wellbutrin XL] 150 mg PO DAILY 05/24/16 [History] valACYclovir HCl [Valtrex] 500 mg PO DAILY 05/24/16 [History] Past Medical History Other HEENT History: wears glasses, contacts Cardiovascular History: Reports: None Respiratory History: Reports: None Gastrointestinal History: Reports: None Genitourinary History: Reports: None Other Genitourinary History: hx of vaginal herpes MANAGER MED SURG History: Reports: Ectopic , , Spontaneous Musculoskeletal History: Reports: None Neurological History: Reports: None Psychiatric History: Reports: Depression Endocrine/Metabolic History: Reports: Diabetes, Gestational Hematologic History: Reports: Blood Transfusion(s) Immunologic History: Reports: None Oncologic (Cancer) History: Reports: Lymphoma Other Oncologic History: hx of Hodgkins Lymphoma, has been in remission for 14 years Dermatologic History: Reports: None Other Dermatologic History: genital herpes - Infectious Disease History Infectious Disease History: Reports: Chicken Pox - Past Surgical History HEENT Surgical History: Reports: Other (See Below) Other HEENT Surgeries/Procedures: lymph node biopsy GI Surgical History: Reports: None Female Surgical History: Reports: Dilitation & Evacuation, LEEP, Other (See Below) Other Female Surgeries/Procedures: laparoscopy for ectopic Musculoskeletal Surgical History: Reports: Other (See Below) Other Musculoskeletal Surgeries/Procedures:: bilateral carpal tunnel release Oncologic Surgical History: Reports: Other (See Below) Other Oncologic Surgeries/Procedures: hx of lymph node bx Social & Family History - Family History Family Medical History: Noncontributory HEENT: Reports: Impaired Vision Cardiac: Reports: Pacemaker Respiratory: Reports: Sleep Apnea GI: Reports: None : Reports: None OBGYN: Reports: Musculoskeletal: Reports: Arthritis Neurological: Reports: Dementia, Seizure Psychiatric: Reports: Abuse, Victim of, Learning Disability Endocrine/Metabolic: Reports: Other (See Below) Other Endocrine/Metabolic Family History: prediabetes Hematologic: Reports: None Immunologic: Reports: None Dermatologic: Reports: None Oncologic: Reports: Brain, Breast, Colon, Lung - Tobacco Use Smoking Status *Q: Never Smoker Second Hand Smoke Exposure: No - Caffeine Use Caffeine Use: Reports: Coffee - Recreational Drug Use Recreational Drug Use: No ED ROS GENERAL - Review of Systems Review Of Systems: ROS reveals no pertinent complaints other than HPI. ED EXAM, SKIN/RASH Exam: See Below (See dictation) Course - Vital Signs Last Recorded V/S: Last Vital Signs Temp 97.3 F 07/27/19 20:04 Pulse 102 H 07/27/19 20:04 Resp 16 07/27/19 20:04 BP 123/76 07/27/19 20:04 Pulse Ox 98 07/27/19 20:04 Departure - Departure Time of Disposition: 20:16 Disposition: Home, Self-Care 01 Clinical Impression: Dermatitis - Discharge Information Referrals: Ruba Sanabria PA [Primary Care Provider] - Additional Instructions: The following information is given to patients seen in the emergency department who are being discharged to home. This information is to outline your options for follow-up care. We provide all patients seen in our emergency department with a follow-up referral. The need for follow-up, as well as the timing and circumstances, are variable depending upon the specifics of your emergency department visit. If you don't have a primary care physician on staff, we will provide you with a referral. We always advise you to contact your personal physician following an emergency department visit to inform them of the circumstance of the visit and for follow-up with them and/or the need for any referrals to a consulting specialist. The emergency department will also refer you to a specialist when appropriate. This referral assures that you have the opportunity for follow-up care with a specialist. All of these measure are taken in an effort to provide you with optimal care, which includes your follow-up. Under all circumstances we always encourage you to contact your private physician who remains a resource for coordinating your care. When calling for follow-up care, please make the office aware that this follow-up is from your recent emergency room visit. If for any reason you are refused follow-up, please contact the [facility] Emergency Department at and asked to speak to the emergency department charge nurse. [facility] [address] [place] [id number] [address] 1. You can alternate ibuprofen and Tylenol as directed for pain and discomfort. 2. Follow-up with a primary care provider as discussed. Return to the ED as needed and as discussed.
== END 2019-07-27 20:38 | disposition home or self-care (01) ==
LOC: MW.ED 19:53
DX: L30.9 Dermatitis, unspecified (principal); F32.9 Major depressive disorder, single episode, unspecified; Z79.899 Other long term (current) drug therapy; Z91.030 Bee allergy status
CPT/HCPCS: 99282

== ENCOUNTER 2019-10-19 02:28 | Emergency (ER) | payer OTHER ==
[2019-10-19] MEDS ORDERED: Sodium Chloride 0.9% 1,000 ML IV ONE (02:51)
[2019-10-19] MEDS ORDERED: Pantoprazole 80 MG in Sodium Chloride 0.9% 20 ML IVPUSH ONE (02:51)
[2019-10-19] MEDS ORDERED: Ketorolac 30 MG/ML SDV IVPUSH ONE (02:51)
[2019-10-19] MEDS ORDERED: Ondansetron 4 MG/2 ML SDV IVPUSH ONE (02:51)
[2019-10-19] MEDS ORDERED: Sodium Chloride 0.9% 10 ML Syringe FLUSH PRN (02:51)
[2019-10-19] MEDS ORDERED: Sodium Chloride 0.9% 2.5 ML Syringe FLUSH PRN (02:51)
--- NOTE | 2019-10-19 02:56 | EDM.PDOC ---
ED HPI GENERAL MEDICAL PROBLEM - General Chief Complaint: Abdominal Pain Stated Complaint: ABDOMINAL PAIN Time Seen by Provider: 10/19/19 02:29 - History of Present Illness INITIAL COMMENTS - FREE TEXT/NARRATIVE: HISTORY AND PHYSICAL: History of present illness: The patient is a 38-year-old female with no GI or abdominal surgical history who presents to the ED with gradual onset of which she feels is a fullness and crampy-like sensation in her mid and upper abdomen that started about 3 PM, approximately 12 hours ago. She said that she did not feel quite right earlier in the morning but had no nausea or fever or specific pain and went to work and as the day progressed the symptoms seem to worsen and she felt more fullness and cramping in her upper abdomen associated with some nausea. She thought if she would make herself vomit she would feel better so she did and her dinner of a hamburger isaiah came up. She has had some loose stools since starting a keto diet 3 days ago but they were not black or bloody. She has not had any fever or flank pain and says the pain does not migrate or localize right or left. She does not feel bloated or gassy. She says she did take a sip of Pepto- Bismol but it did not help very much. She says she is having trouble sleeping because of the discomfort. She denies and does state that she was late getting her Depakote shot but is on oral control as well. She denies any history of food intolerance in the past and does admit that prior to starting the keto diet she was eating more meat and more beef than usual. She says that from the diet standpoint she has been actually feeling pretty good until this all started. She has no urinary complaints and no flank pain. Review of systems: As per history of present illness and below otherwise all systems reviewed and negative. Past medical history: As per history of present illness and as reviewed below otherwise noncontributory. Surgical history: As per history of present illness and as reviewed below otherwise noncontributory. Social history: No reported history of drug or alcohol abuse. Family history: As per history of present illness and as reviewed below otherwise noncontributory. Physical exam: Well-developed well-nourished female who is nontoxic and moves easily in the ED without distress. Vital signs are noted by me HEENT: Atraumatic, normocephalic, pupils reactive, negative for conjunctival pallor or scleral icterus, mucous membranes moist, throat clear, neck supple, nontender, trachea midline. Lungs: Clear to auscultation, breath sounds equal bilaterally, chest nontender. Heart: S1S2, regular, negative for clicks, rubs, or JVD. Abdomen: Soft, nondistended, there is mild tenderness in the right upper quadrant and in the periumbilical area but no rebound or guarding and bowel sounds are slightly hypoactive. There is no tympany on percussion and there is no lower abdominal tenderness on palpation. There is no specific epigastric tenderness. Negative for masses or hepatosplenomegaly. Negative for costovertebral tenderness. Pelvis: Stable nontender. Genitourinary: Deferred. Rectal: Deferred. Extremities: Atraumatic, negative for cords or calf pain. Neurovascular unremarkable. Neuro: Awake, alert, oriented. Cranial nerves II through XII unremarkable. Cerebellum unremarkable. Motor and sensory unremarkable throughout. Exam nonfocal. Diagnostics: CBC CMP UA UCG lipase amylase CT scan abd and pelvis Therapeutics: IV fluids Protonix Zofran toradol hyoscamine Findings with lab evaluation were discussed with the patient and she is saying that she is feeling better but she is having waves of crampy-like pain. I discussed with her that this could possibly be due to her new keto diet but she is still concerned to swallow proceed to do imaging. She states understanding She Is feeling much better and says that her pain has subsided and on my reexamination she has no tenderness in the right lower quadrant. She is aware of CT scan findings and I will discuss this case with our surgeon on-call [id number]: The case was discussed with our surgeon on-call Dr. Newman; he agrees that this is likely a mucocele as she is not have any tenderness or inflammatory changes on the CAT scan and as he does not have clinic hours today he offered to come into the ED in an hour and a half and evaluate her in the ED. The patient says that she cannot stay for that and in fact needs to go home to take care of her child as her needs to go to work. She is aware of risks and says that she will return for fevers vomiting or pain in that region. We have arranged for her to go to the clinic and see Dr. Newman on Tuesday at 9 AM and she will call his nurse prior to that and he is aware that she is not going to be staying. I have strongly advised her on reasons to return and that if she feels nervous or uncomfortable at home she can always return at any time and she states understanding. Impression: Abdominal pain r/o Mucocele appendix on CT asymptomatic Definitive disposition and diagnosis as appropriate pending reevaluation and review of above. upper abdomen Pain Score (Numeric/FACES): 7 - Related Data Allergies Allergy/AdvReac Type Severity Reaction Status Date / Time bee stings Allergy Hives Uncoded 07/27/19 20:04 Home Meds: Home Meds buPROPion [Wellbutrin XL] 150 mg PO DAILY 05/24/16 [History] valACYclovir HCl [Valtrex] 500 mg PO DAILY 05/24/16 [History] Control 10/19/19 [History] Docusate Sodium [Stool Softener] 0 mg PO 10/19/19 [History] Non-Formulary Medication [NF Drug] 0 each 10/19/19 [History] Past Medical History Other HEENT History: wears glasses, contacts Cardiovascular History: Reports: None Respiratory History: Reports: None Gastrointestinal History: Reports: None Genitourinary History: Reports: None Other Genitourinary History: hx of vaginal herpes SOCIAL WORK MSW History: Reports: Ectopic , , Spontaneous Musculoskeletal History: Reports: None Neurological History: Reports: None Psychiatric History: Reports: Depression Endocrine/Metabolic History: Reports: Diabetes, Gestational Hematologic History: Reports: Blood Transfusion(s) Immunologic History: Reports: None Oncologic (Cancer) History: Reports: Lymphoma Other Oncologic History: hx of Hodgkins Lymphoma, has been in remission for 14 years Dermatologic History: Reports: None Other Dermatologic History: genital herpes - Infectious Disease History Infectious Disease History: Reports: Chicken Pox - Past Surgical History HEENT Surgical History: Reports: Other (See Below) Other HEENT Surgeries/Procedures: lymph node biopsy GI Surgical History: Reports: None Female Surgical History: Reports: Dilitation & Evacuation, LEEP, Other (See Below) Other Female Surgeries/Procedures: laparoscopy for ectopic Musculoskeletal Surgical History: Reports: Other (See Below) Other Musculoskeletal Surgeries/Procedures:: bilateral carpal tunnel release Oncologic Surgical History: Reports: Other (See Below) Other Oncologic Surgeries/Procedures: hx of lymph node bx Social & Family History - Family History Family Medical History: Noncontributory HEENT: Reports: Impaired Vision Cardiac: Reports: Pacemaker Respiratory: Reports: Sleep Apnea GI: Reports: None : Reports: None OBGYN: Reports: Musculoskeletal: Reports: Arthritis Neurological: Reports: Dementia, Seizure Psychiatric: Reports: Abuse, Victim of, Learning Disability Endocrine/Metabolic: Reports: Other (See Below) Other Endocrine/Metabolic Family History: prediabetes Hematologic: Reports: None Immunologic: Reports: None Dermatologic: Reports: None Oncologic: Reports: Brain, Breast, Colon, Lung - Tobacco Use Smoking Status *Q: Never Smoker - Caffeine Use Caffeine Use: Reports: Coffee - Recreational Drug Use Recreational Drug Use: No ED ROS GENERAL - Review of Systems Review Of Systems: Comprehensive ROS is negative, except as noted in HPI. ED EXAM, GENERAL - Physical Exam Exam: See Below (See dictation) Course - Vital Signs Last Recorded V/S: Last Vital Signs Temp 35.9 C 10/19/19 02:38 Pulse 81 10/19/19 03:45 Resp 17 10/19/19 03:45 BP 133/70 10/19/19 03:45 Pulse Ox 100 10/19/19 03:45 - Orders/Labs/Meds Orders: Active Orders 24 hr Category Date Time Status Sodium Chloride 0.9% [Saline Flush] Med 10/19/19 02:51 Active 10 ml FLUSH ASDIRECTED PRN Sodium Chloride 0.9% [Saline Flush] Med 10/19/19 02:51 Active 2.5 ml FLUSH ASDIRECTED PRN Saline Lock Insert [OM.PC] Stat Oth 10/19/19 02:49 Ordered Medication Orders Sodium Chloride (Saline Flush) 10 ml FLUSH ASDIRECTED PRN PRN Reason: Keep Vein Open Sodium Chloride (Saline Flush) 2.5 ml FLUSH ASDIRECTED PRN PRN Reason: Keep Vein Open Labs: Laboratory Tests 10/19/19 10/19/19 10/19/19 Range/Units 02:50 02:50 02:57 WBC 13.51 H (4.0-11.0) K/uL RBC 4.36 (4.30-5.90) M/uL Hgb 13.5 (12.0-16.0) g/dL Hct 38.6 (36.0-46.0) % MCV 88.5 (80.0-98.0) fL MCH 31.0 (27.0-32.0) pg MCHC 35.0 (31.0-37.0) g/dL RDW Std Deviation 42.6 (28.0-62.0) fl RDW Coeff of Gato 13 (11.0-15.0) % Plt Count 297 (150-400) K/uL MPV 9.40 (7.40-12.00) fL Neut % (Auto) 71.4 (48.0-80.0) % Lymph % (Auto) 21.1 (16.0-40.0) % [facility] [facility] % (Auto) 6.4 (0.0-15.0) % Eos % (Auto) 0.9 (0.0-7.0) % Baso % (Auto) 0.2 (0.0-1.5) % Neut # (Auto) 9.6 H (1.4-5.7) K/uL Lymph # (Auto) 2.9 H (0.6-2.4) K/uL [facility] # (Auto) 0.9 H (0.0-0.8) K/uL Eos # (Auto) 0.1 (0.0-0.7) K/uL Baso # (Auto) 0.0 (0.0-0.1) K/uL Nucleated RBC % 0.0 /100WBC Nucleated RBCs # 0 K/uL Sodium (136-145) mmol/L Potassium (3.5-5.1) mmol/L Chloride (98-107) mmol/L Carbon Dioxide (21.0-32.0) mmol/L BUN (7.0-18.0) mg/dL Creatinine (0.6-1.0) mg/dL Est Cr Clr Drug Dosing mL/min Estimated GFR (MDRD) ml/min Glucose (74-106) mg/dL Calcium (8.5-10.1) mg/dL Total Bilirubin (0.2-1.0) mg/dL AST (15-37) IU/L ALT (14-63) IU/L Alkaline Phosphatase (46-116) U/L Total Protein (6.4-8.2) g/dL Albumin (3.4-5.0) g/dL Globulin (2.6-4.0) g/dL Albumin/Globulin Ratio (0.9-1.6) Amylase (25-115) U/L Lipase (73-393) U/L Urine Color YELLOW Urine Appearance CLEAR Urine pH 6.0 (5.0-8.0) Ur Specific [place] 1.025 (1.001-1.035) Urine Protein NEGATIVE (NEGATIVE) mg/dL Urine Glucose (UA) NEGATIVE (NEGATIVE) mg/dL Urine Ketones 15 H (NEGATIVE) mg/dL Urine Occult Blood TRACE-INTACT H (NEGATIVE) Urine Nitrite NEGATIVE (NEGATIVE) Urine Bilirubin NEGATIVE (NEGATIVE) Urine Urobilinogen 0.2 (<2.0) EU/dL Ur Leukocyte Esterase NEGATIVE (NEGATIVE) Urine RBC 0-1 (0-2/HPF) Urine WBC 0-1 (0-5/HPF) Ur Epithelial Cells RARE (NONE-FEW) Urine Bacteria RARE (NEGATIVE) Urine HCG, Qual NEGATIVE (NEGATIVE) 10/19/19 Range/Units 02:57 WBC (4.0-11.0) K/uL RBC (4.30-5.90) M/uL Hgb (12.0-16.0) g/dL Hct (36.0-46.0) % MCV (80.0-98.0) fL MCH (27.0-32.0) pg MCHC (31.0-37.0) g/dL RDW Std Deviation (28.0-62.0) fl RDW Coeff of Gato (11.0-15.0) % Plt Count (150-400) K/uL MPV (7.40-12.00) fL Neut % (Auto) (48.0-80.0) % Lymph % (Auto) (16.0-40.0) % [facility] % (Auto) (0.0-15.0) % Eos % (Auto) (0.0-7.0) % Baso % (Auto) (0.0-1.5) % Neut # (Auto) (1.4-5.7) K/uL Lymph # (Auto) (0.6-2.4) K/uL [facility] # (Auto) (0.0-0.8) K/uL Eos # (Auto) (0.0-0.7) K/uL Baso # (Auto) (0.0-0.1) K/uL Nucleated RBC % /100WBC Nucleated RBCs # K/uL Sodium 140 (136-145) mmol/L Potassium 3.4 L (3.5-5.1) mmol/L Chloride 102 (98-107) mmol/L Carbon Dioxide 24.8 (21.0-32.0) mmol/L BUN 21 H (7.0-18.0) mg/dL Creatinine 0.8 (0.6-1.0) mg/dL Est Cr Clr Drug Dosing 82.33 mL/min Estimated GFR (MDRD) > 60.0 ml/min Glucose 109 H (74-106) mg/dL Calcium 9.1 (8.5-10.1) mg/dL Total Bilirubin 0.4 (0.2-1.0) mg/dL AST 17 (15-37) IU/L ALT 33 (14-63) IU/L Alkaline Phosphatase 69 (46-116) U/L Total Protein 8.3 H (6.4-8.2) g/dL Albumin 4.2 (3.4-5.0) g/dL Globulin 4.1 H (2.6-4.0) g/dL Albumin/Globulin Ratio 1.0 (0.9-1.6) Amylase 57 (25-115) U/L Lipase 118 (73-393) U/L Urine Color Urine Appearance Urine pH (5.0-8.0) Ur Specific [place] (1.001-1.035) Urine Protein (NEGATIVE) mg/dL Urine Glucose (UA) (NEGATIVE) mg/dL Urine Ketones (NEGATIVE) mg/dL Urine Occult Blood (NEGATIVE) Urine Nitrite (NEGATIVE) Urine Bilirubin (NEGATIVE) Urine Urobilinogen (<2.0) EU/dL Ur Leukocyte Esterase (NEGATIVE) Urine RBC (0-2/HPF) Urine WBC (0-5/HPF) Ur Epithelial Cells (NONE-FEW) Urine Bacteria (NEGATIVE) Urine HCG, Qual (NEGATIVE) Meds: Medications Generic Name Dose Route Start Last Admin Trade Name Freq PRN Reason Stop Dose Admin Sodium Chloride 10 ml 10/19/19 02:51 Saline Flush FLUSH ASDIRECTED PRN Keep Vein Open Sodium Chloride 2.5 ml 10/19/19 02:51 Saline Flush FLUSH ASDIRECTED PRN Keep Vein Open Discontinued Medications Generic Name Dose Route Start Last Admin Trade Name Scotty PRN Reason Stop Dose Admin Hyoscyamine 0.125 mg 10/19/19 03:35 10/19/19 03:46 Hyomax-Sl SL 10/19/19 03:36 0.125 mg ONETIME ONE Administration Sodium Chloride 1,000 mls @ 999 mls/hr 10/19/19 02:51 10/19/19 02:59 Normal Saline IV 10/19/19 03:51 999 mls/hr STAT ONE Administration Pantoprazole Sodium 80 mg/ 20 mls @ 420 mls/hr 10/19/19 02:51 10/19/19 03:07 Sodium Chloride IVPUSH 10/19/19 02:53 420 mls/hr ONETIME ONE Administration Iopamidol 100 ml 10/19/19 04:07 10/19/19 04:07 Isovue Multipack-370 (76%) IVPUSH 10/19/19 04:08 100 ml ONETIME ONE Administration Ketorolac Tromethamine 30 mg 10/19/19 02:51 10/19/19 03:06 Toradol IVPUSH 10/19/19 02:52 30 mg ONETIME ONE Administration Ondansetron HCl 4 mg 10/19/19 02:51 10/19/19 03:04 Zofran IVPUSH 10/19/19 02:52 4 mg ONETIME ONE Administration Departure - Departure Time of Disposition: 05:01 Disposition: Home, Self-Care 01 Condition: Good Clinical Impression: Abdominal pain Qualifiers: Abdominal location: periumbilical Qualified Code(s): R10.33 - Periumbilical pain - Discharge Information Referrals: Ruba Sanabria PA [Primary Care Provider] - Forms: ED Department Discharge Additional Instructions: The following information is given to patients seen in the emergency department who are being discharged to home. This information is to outline your options for follow-up care. We provide all patients seen in our emergency department with a follow-up referral. The need for follow-up, as well as the timing and circumstances, are variable depending upon the specifics of your emergency department visit. If you don't have a primary care physician on staff, we will provide you with a referral. We always advise you to contact your personal physician following an emergency department visit to inform them of the circumstance of the visit and for follow-up with them and/or the need for any referrals to a consulting specialist. The emergency department will also refer you to a specialist when appropriate. This referral assures that you have the opportunity for followup care with a specialist. All of these measure are taken in an effort to provide you with optimal care, which includes your followup. Under all circumstances we always encourage you to contact your private physician who remains a resource for coordinating your care. When calling for followup care, please make the office aware that this follow-up is from your recent emergency room visit. If for any reason you are refused follow-up, please contact the [facility] emergency department at and ask to speak to the emergency department charge nurse. [facility] [address] [place] [id number] Push hydration and use [id number] medications for pain management or your prescribed medications as needed for breakthrough. Please plan on seeing Dr. Newman in the clinic Tuesday at 9 AM and you are just to arrive 15 minutes early for paperwork. Please call his nurse at 8 AM in the clinic using resources given to you above to inform her of this arrangement that has been made with him. Review any any trouble with this clinic appointment please call the ED and asked to speak with the charge nurse. Return to the ER sooner as needed and as we discussed Sepsis Event Note - Evaluation Sepsis Screening Result: No Definite Risk - Focused Exam Vital Signs: Vital Signs Temp Pulse Resp BP Pulse Ox 10/19/19 03:45 81 17 133/70 100 10/19/19 02:38 35.9 C 84 16 134/75 99 Date Exam was Performed: 10/19/19 Time Exam was Performed: 04:59 - My Orders Last 24 Hours: My Active Orders 10/19/19 02:49 Saline Lock Insert [OM.PC] Stat 10/19/19 02:51 Sodium Chloride 0.9% [Saline Flush] 10 ml FLUSH ASDIRECTED PRN Sodium Chloride 0.9% [Saline Flush] 2.5 ml FLUSH ASDIRECTED PRN - Assessment/Plan Last 24 Hours: My Active Orders 10/19/19 02:49 Saline Lock Insert [OM.PC] Stat 10/19/19 02:51 Sodium Chloride 0.9% [Saline Flush] 10 ml FLUSH ASDIRECTED PRN Sodium Chloride 0.9% [Saline Flush] 2.5 ml FLUSH ASDIRECTED PRN
[2019-10-19 03:26] LABS: BLOOD UREA NITROGEN,BUN 21 mg/dL (7.0-18.0); CARBON DIOXIDE,CO2 24.8 mmol/L (21.0-32.0); CHLORIDE,CL 102 mmol/L (98-107); GLUCOSE RANDOM 109 mg/dL (74-106); LIPASE 118 U/L (73-393); POTASSIUM,K 3.4 mmol/L (3.5-5.1); SODIUM,NA 140 mmol/L (136-145)
[2019-10-19] MEDS ORDERED: Hyoscyamine 0.125 MG Tab.SL SL ONE (03:35)
[2019-10-19] MEDS ORDERED: Iopamidol 755 MG/ML 200 ML Multipack Bottle IVPUSH ONE (04:07)
--- NOTE | 2019-10-19 04:34 | CT ---
INDICATION: Abdominal pain TECHNIQUE: CT abdomen and pelvis acquired with 100 cc Isovue 370 IV contrast. COMPARISON: None FINDINGS: Lower chest: Unremarkable. Liver: Unremarkable. Spleen: Unremarkable. Pancreas: Unremarkable. Gallbladder and bile ducts: Unremarkable. Adrenal glands: Unremarkable. Kidneys: Bilateral punctate nonobstructive nephrolithiasis. GI tract: The appendix measures 1.4 cm in diameter and is filled with low-density fluid measuring 17 Hounsfield units in density. There are also a few appendicoliths. No significant periappendiceal fat stranding. No extraluminal air or abscess. Vascular structures: Unremarkable. Lymph nodes: Unremarkable. Miscellaneous: Unremarkable. No free air or significant free fluid. Pelvic Organs: Unremarkable. Bones: Unremarkable for age. IMPRESSION: The appendix is dilated and filled with low-density fluid and a few appendicoliths. This is most concerning for a mucocele of the appendix although early acute appendicitis cannot be excluded. No significant periappendiceal fat stranding. Bilateral nonobstructive nephrolithiasis. Findings discussed with Dr. Alfredo at 4:30 a.m. on October 19, 2019. Please note that all CT scans at this facility use dose modulation, iterative reconstruction, and/or weight-based dosing when appropriate to reduce radiation dose to as low as reasonably achievable. Dictated by Saba Ramirez MD @ Oct 19 2019 4:22AM Signed by Dr. Saba Ramirez @ Oct 19 2019 4:32AM
[2019-10-19 05:02] VITALS: BP 113/69; PULSE 71
== END 2019-10-19 05:07 | disposition home or self-care (01) ==
LOC: MW.ED 02:28
DX: R10.33 Periumbilical pain (principal); Z91.030 Bee allergy status
CPT/HCPCS: 36415; 74177; 80053; 81001; 81025; 82150; 83690; 85025; 96361; 96374; 96375; 99284; A9270; C9113; J1885; J2405; J7030; Q9967

== ENCOUNTER 2019-10-22 11:42 | Day surgery (SDC) | payer OTHER ==
[2019-10-22] MEDS ORDERED: Bupivacaine 0.25%/EPINEPHrine 1:200,000 10 ML SDV ONE (12:03)
[2019-10-22] MEDS ORDERED: cefOXitin 2 GM in Premix Bag 1 BAG IV ONE (12:04)
--- NOTE | 2019-10-22 12:06 | PCM.SN ---
- Free Text/Narrative Note: abd pain X 4 days, no relieve, nausea, wbc 13, dilated appendix 14 mm, and appendicolity; proceed w surgery, rb dw pt re bleeding/infection/damage to nearby organs; pt concur, proceed w surgery
[2019-10-22] MEDS ORDERED: Lactated Ringers 1,000 ML IV SCH (12:15)
[2019-10-22] MEDS ORDERED: Midazolam 1 MG/ML 2 ML SDV ONE (12:23)
[2019-10-22] MEDS ORDERED: Lidocaine 2% 5 ML SDV ONE (12:23)
[2019-10-22] MEDS ORDERED: fentaNYL 100 MCG/2 ML SDV ONE (12:23)
[2019-10-22] MEDS ORDERED: Rocuronium 100 MG/10 ML Syringe ONE (12:23)
[2019-10-22] MEDS ORDERED: Propofol 200 MG/20 ML SDV ONE (12:23)
--- NOTE | 2019-10-22 12:47 | PCM.PREANE ---
Preanesthetic Assessment - Anesthesia/Transfusion/Family Hx Anesthesia History: Prior Anesthesia Without Reaction Family History of Anesthesia Reaction: No Transfusion History: No Prior Transfusion(s) Intubation History: Unknown - Review of Systems General: No Symptoms Pulmonary: No Symptoms Cardiovascular: No Symptoms Neurological: No Symptoms Other: Reports: None - Physical Assessment NPO Status Date: 10/22/19 NPO Status Time: 07:30 Vital Signs: Last Vital Signs Temp 97.3 F 10/22/19 11:50 Pulse 78 10/22/19 11:50 Resp 16 10/22/19 11:50 BP 110/66 10/22/19 11:50 Pulse Ox 96 10/22/19 11:50 Height: 5 ft 4 in Weight: 83.915 kg ASA Class: 2 Mental Status: Alert & Oriented x3 Airway Class: Mallampati = 2 Dentition: Reports: Normal Dentition ROM/Head Extension: Full Lungs: Clear to Auscultation, Normal Respiratory Effort Cardiovascular: Regular Rate, Regular Rhythm - Lab Values: Laboratory Last Values Urine HCG, Qual NEGATIVE (NEGATIVE) 10/22/19 11:50 - Allergies Allergies/Adverse Reactions: Allergies Allergy/AdvReac Type Severity Reaction Status Date / Time bee stings Allergy Hives Uncoded 10/22/19 12:22 - Blood Blood Available: No - Anesthesia Plan Pre-Op Medication Ordered: None - Acknowledgements Anesthesia Type Planned: General Anesthesia Pt an Appropriate Candidate for the Planned Anesthesia: Yes Alternatives and Risks of Anesthesia Discussed w Pt/Guardian: Yes Pt/Guardian Understands and Agrees with Anesthesia Plan: Yes Additional Comments: PMH: anx/dep, hyperlipidemia PLANGET PreAnesthesia Questionnaire HEENT History: Reports: Other (See Below) Other HEENT History: wears glasses Cardiovascular History: Reports: None Respiratory History: Reports: None Gastrointestinal History: Reports: Other (See Below) Other Gastrointestinal History: occasional heartburn- takes TUMS Genitourinary History: Reports: Renal Calculus Other Genitourinary History: hx of passing a kidney stone [employer]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 , Musculoskeletal History: Reports: Other (See Below) Other Musculoskeletal History: hx of lymph node bx Neurological History: Reports: None Psychiatric History: Reports: Depression Endocrine/Metabolic History: Reports: Obesity/BMI 30+ Hematologic History: Reports: Blood Transfusion(s) Immunologic History: Reports: None Oncologic (Cancer) History: Reports: Lymphoma Other Oncologic History: hx of Hodgkins Lymphoma, has been in remission for 14 years Dermatologic History: Reports: Other (See Below) Other Dermatologic History: hx of vaginal herpes - Infectious Disease History Infectious Disease History: Reports: Chicken Pox - Past Surgical History Head Surgeries/Procedures: Reports: None Cardiovascular Surgical History: Reports: Other (See Below) Other Cardiovascular Surgeries/Procedures: Insertion of Port-a-Cath for Chemotherapy- then removed Female Surgical History: Reports: D&C Musculoskeletal Surgical History: Reports: Carpal Tunnel - SUBSTANCE USE Smoking Status *Q: Never Smoker Recreational Drug Use History: No - HOME MEDS Home Medications: Home Meds buPROPion [Wellbutrin XL] 150 mg PO DAILY 05/24/16 [History] valACYclovir HCl [Valtrex] 1,000 mg PO DAILY 05/24/16 [History] Norgestimate-Ethinyl Estradiol [Owj-Pg-Adslgnoep Tablet] 1 tab PO DAILY [History] Oxybutynin Chloride [Oxybutynin Chloride ER] 5 mg PO BEDTIME 10/22/19 [History] - CURRENT (IN HOUSE) MEDS Current Meds: Current Medications Lactated Ringer's (Ringers, Lactated) 1,000 mls @ 125 mls/hr IV ASDIRECTED JOSE RAUL Last Admin: 10/22/19 12:25 Dose: 125 mls/hr Discontinued Medications Bupivacaine HCl/Epinephrine Bitart (Marcaine 0.25%/Epinephrine 1:200,000) Confirm Administered Dose 20 ml .ROUTE .STK-MED ONE Stop: 10/22/19 12:04 Fentanyl (Sublimaze) Confirm Administered Dose 100 mcg .ROUTE .STK-MED ONE Stop: 10/22/19 12:24 Cefoxitin Sodium 2 gm/ Premix 50 mls @ 100 mls/hr IV ONETIME ONE Stop: 10/22/19 12:33 Lidocaine (Xylocaine-Mpf 2%) Confirm Administered Dose 5 ml .ROUTE .STK-MED ONE Stop: 10/22/19 12:24 Midazolam HCl (Versed 1 Mg/Ml) Confirm Administered Dose 2 mg .ROUTE .STK-MED ONE Stop: 10/22/19 12:24 Propofol (Diprivan 20 Ml) Confirm Administered Dose 200 mg .ROUTE .STK-MED ONE Stop: 10/22/19 12:24 Rocuronium [place] (Zemuron) Confirm Administered Dose 100 mg .ROUTE .STK-MED ONE Stop: 10/22/19 12:24 Succinylcholine Chloride (Succinylcholine Chloride) Confirm Administered Dose 200 mg .ROUTE .STK-MED ONE Stop: 10/22/19 12:24
[2019-10-22] MEDS ORDERED: Sodium Chloride 0.9% 20 ML ONE (13:02)
[2019-10-22] MEDS ORDERED: cefOXitin 1 GM Vial ONE (13:02)
[2019-10-22] MEDS ORDERED: Phenylephrine/Normal Saline 100 MCG/ML 10 ML Syringe ONE (13:13)
[2019-10-22] MEDS ORDERED: Dexamethasone 4 MG/ML 5 ML MDV ONE (13:20)
[2019-10-22] MEDS ORDERED: Ketorolac 30 MG/ML SDV ONE (13:20)
[2019-10-22] MEDS ORDERED: Ondansetron 4 MG/2 ML SDV ONE (13:20)
[2019-10-22] MEDS ORDERED: Atropine 0.1 MG/ML 10 ML Syringe IVPUSH PRN ×2 (13:22)
[2019-10-22] MEDS ORDERED: Albuterol 0.083% 2.5 MG/3 ML Neb Soln NEB PRN (13:22)
[2019-10-22] MEDS ORDERED: EPINEPHrine 1:10,000 1 MG/10 ML Syringe IVPUSH PRN (13:22)
[2019-10-22] MEDS ORDERED: 50% Dextrose in Water 50 ML Syringe IVPUSH PRN (13:22)
[2019-10-22] MEDS ORDERED: Naloxone 0.4 MG/ML Syringe IVPUSH PRN (13:22)
[2019-10-22] MEDS ORDERED: Neostigmine Methylsulfate 1 MG/ML 5 ML Syringe ONE (13:44)
[2019-10-22] MEDS ORDERED: Glycopyrrolate 0.2 MG/ML SDV ONE (13:44)
--- NOTE | 2019-10-22 14:03 | PCM.OPNOTE ---
- General Post-Op/Procedure Note Date of Surgery/Procedure: 10/22/19 Operative Procedure(s): lap appendectomy Findings: appendix is very dilated, at least 15 mm; hyperemic, and obliterated at the distal 1/4; gross perf not observed; [id number] Pre Op Diagnosis: early appendicitis Post-Op Diagnosis: Same Anesthesia Technique: General ET Tube Primary Surgeon: Matt Newman Pathology: sent Complications: None Condition: Good
[2019-10-22] MEDS: fentaNYL 100 MCG/2 ML SDV IVPUSH PRN ×2 (14:14→14:20)
[2019-10-22] MEDS ORDERED: Haloperidol Lactate 5 MG/ML SDV IM ONE (14:17)
--- NOTE | 2019-10-22 14:43 | PCM.POSTAN ---
POST ANESTHESIA ASSESSMENT - MENTAL STATUS Mental Status: Alert, Oriented - VITAL SIGNS Vital Signs: Last Vital Signs Temp 37 C 10/22/19 13:59 Pulse 111 H 10/22/19 14:29 Resp 13 10/22/19 14:29 BP 127/70 10/22/19 14:29 Pulse Ox 95 10/22/19 14:29 - RESPIRATORY Respiratory Status: Respiratory Rate WNL, Airway Patent, O2 Saturation Stable - CARDIOVASCULAR CV Status: Pulse Rate WNL, Blood Pressure Stable - GASTROINTESTINAL GI Status: No Symptoms - POST OP HYDRATION Hydration Status: Adequate & Stable (discharge to room 207)
[2019-10-22] MEDS ORDERED: Ondansetron 4 MG/2 ML SDV IVPUSH PRN (15:48)
[2019-10-22] MEDS ORDERED: Acetaminophen/oxyCODONE 325-5 MG Tab PO PRN (15:49)
[2019-10-22 17:21] VITALS: BP 120/72; PULSE 99
--- NOTE | 2019-10-22 17:24 | OR ---
SURGEON: Matt Newman MD DATE OF PROCEDURE: 10/22/2019 PREOPERATIVE DIAGNOSIS: Early appendicitis. POSTOPERATIVE DIAGNOSIS: Early appendicitis. PROCEDURE PERFORMED: Laparoscopic appendectomy. PRIMARY SURGEON: Matt Newman MD. COMPLICATIONS: None. FINDINGS: Appendix is very dilated, at least 15 mm, hyperemic, and obliterated at the distal one-fourth. The obliterated portion was still attached to mesoappendix, looked like a small daisy at the end of the appendix. Gross perforation is not observed. DESCRIPTION OF PROCEDURE: The patient was taken to the operating room and placed in the supine position. Following induction of general endotracheal anesthesia, the patient's abdomen was prepped and draped in the sterile fashion. A time-out has been called. The patient was identified. The procedure was identified. The antibiotics were identified. The procedure then proceeded. The abdomen was prepped and draped in a standard fashion. After assessment of appropriate landmarks, a 12 millimeter trocar was inserted supraumbilically using Optiview and pneumoperitoneum was then achieved. This was followed with placement of 5 millimeter port in the right upper quadrant and another 5 millimeter port infraumbilically. The camera was inserted supraumbilical site and two laparoscopic Webster retractors were then inserted through the other two sites. Following the cecum, the appendix was located. The appendix was then lifted up, and using a GI stapler the appendix was amputated at the base. And using the GI stapler, the mesoappendix was then amputated. The appendix was retrieved by an endoscopic bag and sent for pathologist. This was then followed by re-insertion of the camera to examine the staple line, and hemostasis. The trocars were then removed. The umbilical site was closed with 2-0 Vicryl deep stitch and 4 -0 Vicryl and Dermabond; the other 2 5 mm port sites were closed with 4-0 Vicryl and Dermabond. The patient was then awakened, extubated, and transferred to the recovery room in hemodynamically stable condition. Prior to closing, sponge count and instrument count was correct. Dr. Newman was present throughout the whole procedure. Intraoperative findings as dictated above. As always, thank you for the kind referral. ELIEZER / LUDY /[id number]
--- NOTE | 2019-10-23 05:03 | PCM48HPAN ---
Post Anesthesia Note - EVALUATION WITHIN 48HRS OF ANESTHETIC Vital Signs in Normal Range: Yes Patient Participated in Evaluation: Yes Respiratory Function Stable: Yes Airway Patent: Yes Cardiovascular Function Stable: Yes Hydration Status Stable: Yes Pain Control Satisfactory: Yes Nausea and Vomiting Control Satisfactory: Yes Mental Status Recovered: Yes Vital Signs: Last Vital Signs Temp 36.3 C 10/22/19 15:25 Pulse 99 10/22/19 16:40 Resp 14 10/22/19 16:40 BP 120/72 10/22/19 16:40 Pulse Ox 97 10/22/19 16:40
== END 2019-10-22 17:05 | disposition home or self-care (01) ==
LOC: MW.SDS 11:42 → MW.MS 14:35 → MW.SDS 17:05
PROVIDERS: ATTEND Surgery
DX: K35.80 Unspecified acute appendicitis (principal); K38.8 Other specified diseases of appendix; F32.9 Major depressive disorder, single episode, unspecified; Z91.030 Bee allergy status; Z79.3 Long term (current) use of hormonal contraceptives
CPT/HCPCS: 44970; 81025; A9270; J0330; J0694; J1100; J1885; J2001; J2250; J2370; J2405; J2704; J3010; J3490; J7120; 00840; 88304; C1776